=== PATIENT | male | born 1950 | race Caucasian/White ===

== ENCOUNTER → 2017-11-03 09:50 | Outpatient (REF) | payer MEDICARE, OTHER, SELFPAY ==
[2017-11-03 14:19] LABS: COMMENT (LAB VIEW ONLY) 206.71 mg/dL; Microalb ug/mg Crea 15.7 ug/mg Cr
== END ==
LOC: LBN 09:50
PROVIDERS: PCP Family Medicine; Visit Provider Family Medicine
DX: E11.69 Type 2 diabetes mellitus with other specified complication (principal)
CPT/HCPCS: 82043; 82570

== ENCOUNTER → 2017-11-12 09:47 | Outpatient (CLI) | payer MEDICARE, OTHER, SELFPAY ==
--- NOTE | 2017-11-12 10:35 | DI.REPORT_ITS ---
SYMPTOM/DIAGNOSIS: ENTEROPATHIC ARTHRITIS M07.60, SEVERE ULCERATIVE COLITIS TREATED WITH TOTAL COLECTOMY YEARS AGO BILATERAL HANDS: 11/12 Two views of the hands and wrists were obtained. There is a carpal fusion on the right with plate and screw fixation extending from the radius to the 3rd metacarpal. There are typical changes of degenerative arthritis of the IP joints with mild joint space narrowing and mild osteophyte formation in multiple sites. No erosive process or demineralization seen. CONCLUSION: Mild DJD predominantly involving the IP joints. S-I JOINTS: 11/12/17 Note is made of anastomotic sutures in the region of the rectosigmoid. The S-I joints are well maintained. No evidence of sacroiliitis or joint effusion. LEFT FOOT: 11/12 Three views were obtained. There is marked loss of the cartilaginous joint space of the first MTP joint with prominent hypertrophic changes of the adjacent bones. No other significant bony abnormality seen. CONCLUSION: Nonspecific changes of first MTP joint, likely degenerative. RIGHT FOOT : 11/12 Three views were obtained. There is moderate narrowing of the cartilaginous joint space of the first MTP joint with hypertrophic uri-articular change. The findings are consistent with degenerative arthritis.
[2017-11-12 11:06] LABS: Abs Immature Grans 0.02 k/cumm (0.0-0.09); Absolute Basophil Count 0.06 k/cumm (0.0-0.2); Absolute Lymphocyte Count 1.36 k/cumm (1.2-3.4); Absolute Monocyte Count 0.77 k/cumm (0.11-0.7); Basophils % 0.9; Eosinophils % 6.1; HCT 47.5 % (40.0-50.0); HGB 15.7 g/dL (13.5-17.5); Immature Grans % 0.3; Lymphocytes % 20.9; Mean Corp. HGB Concentration 33.1 g/dL (32.0-36.0); Mean Corpuscular Hemoglobin 28.7 pg (27.0-33.0); Mean Corpuscular Volume 86.8 fL (80-95); Mean Platelet Volume 10.5 fL (8.0-11.0); Monocytes % 11.8; Platelet Count 175 x1000/uL (130-400); RBC 5.47 m/cumm (4.50-6.00); RBC Distribution Width 13.5 % (11.8-14.1); White Blood Cell Count 6.51 k/cumm (4.4-10.8)
[2017-11-12 11:44] LABS: ESR 5 MM/HR (1-20)
[2017-11-12 11:58] LABS: ALT 20 U/L (12-78); AST 16 U/L (15-37); Albumin 3.5 g/dL (3.4-5.0); Alkaline Phosphatase 117 U/L (46-116); Anion Gap 3.1 mmol/L (3-11); BUN 17 mg/dL (7-18); Bilirubin, Total 0.5 mg/dL (0.2-1.0); C-Reactive Protein 3.77 mg/dL (0.0-0.3); CO2 33.9 mmol/L (21.0-32.0); CREATININE 1.31 mg/dL (0.70-1.30); Calcium 9.1 mg/dL (8.5-10.1); Chloride 102 mmol/L (98-107); Estimated GFR 54.58 (mL/min/1.73m2); Glucose 244 mg/dL (70-100); Potassium 4.8 mmol/L (3.5-5.1); Sodium 139 mmol/L (136-145); Total Protein 6.8 g/dL (6.4-8.2)
[2017-11-13 10:39] LABS: Cyclic Citrullinated Peptide <2.5 U/mL (<5.0)
== END ==
PROVIDERS: PCP Family Medicine; Visit Provider Internal Medicine Rheumatology
DX: M07.60 Enteropathic arthropathies, unspecified site (principal); Z79.899 Other long term (current) drug therapy; M19.041 Primary osteoarthritis, right hand; M19.042 Primary osteoarthritis, left hand; M19.071 Primary osteoarthritis, right ankle and foot; M19.072 Primary osteoarthritis, left ankle and foot; M53.3 Sacrococcygeal disorders, not elsewhere classified; K51.90 Ulcerative colitis, unspecified, without complications; Z90.49 Acquired absence of other specified parts of digestive tract
CPT/HCPCS: 72202; 73120; 73630 ×2; 36415; 80053; 85652; 86200; 85025; 86140

== ENCOUNTER 2019-08-10 09:30 | Outpatient (CLI) | payer MEDICARE, OTHER, SELFPAY ==
[2019-08-11 14:54] LABS: COVID-19 RT-PCR Result NEGATIVE (Negative)
== END 2019-08-10 09:50 ==
PROVIDERS: PCP Family Medicine; Visit Provider Family Medicine
DX: R05 Cough (principal)
CPT/HCPCS: U0003

== ENCOUNTER 2019-09-17 04:19 | Outpatient (CLI) | payer MEDICARE, OTHER, SELFPAY ==
[2019-09-17 17:04] LABS: ALT 33 U/L (16-63); AST 33 U/L (15-37); Albumin 3.5 g/dL (3.4-5.0); Alkaline Phosphatase 136 U/L (46-116); BUN 29 mg/dL (7-18); Bilirubin, Total 0.6 mg/dL (0.2-1.0); CREATININE 1.33 mg/dL (0.70-1.30); Calcium 8.8 mg/dL (8.5-10.1); Chloride 104 mmol/L (98-107); Creatine Kinase 237 U/L (39-308); Estimated GFR 53.31 (mL/min/1.73m2); Glucose 189 mg/dL (74-106); Potassium 4.3 mmol/L (3.5-5.1); Sodium 139 mmol/L (136-145); Total Protein 6.5 g/dL (6.4-8.2)
== END 2019-09-17 04:39 ==
PROVIDERS: PCP Family Medicine; Visit Provider Family Medicine
DX: R25.2 Cramp and spasm (principal)
CPT/HCPCS: 36415; 80053; 82550; 83735

== ENCOUNTER 2019-12-24 04:01 | Outpatient (CLI) | payer MEDICARE, OTHER, SELFPAY ==
--- NOTE | 2019-12-24 09:19 | DI.RAD_ITS ---
EXAM: XR CHEST 2V PA LATERAL CLINICAL HISTORY: [id number],NON PRODUCTIVE COUGH TECHNIQUE: 2D digital imaging was performed. COMPARISON: CR CHEST 2 VIEWS PA,LAT from 09/03/2011 CR ABD FLAT UPRIGHT PA CHEST from 07/23/2014 CR LEFT SHOULDER COMPLETE from 08/21/2015 FINDINGS: MEDIASTINUM: Normal. HEART: Normal. PULMONARY VASCULATURE: Normal. LUNGS: There is an infiltrate in the right middle lobe. PLEURAL SPACE: No pleural effusion or pneumothorax. BONE:Within normal limits for the patient's age. OTHER FINDINGS:Normal. IMPRESSION: Right middle lobe infiltrate. DATA REPOSITORY: RADIATION DOSE DELIVERED:
== END 2019-12-24 04:21 ==
PROVIDERS: PCP Family Medicine; Visit Provider Nurse Practitioner Adult Health
DX: R91.8 Other nonspecific abnormal finding of lung field (principal); R05 Cough
CPT/HCPCS: 71046

== ENCOUNTER 2020-01-03 00:46 | Outpatient (CLI) | payer OTHER, SELFPAY ==
--- NOTE | 2020-01-03 | DI.RAD_ITS ---
EXAM: RF BARIUM SWALLOW CLINICAL HISTORY: DYSPHAGIA,R13.19,[id number],GERD WITH NOW LIKELY ASPIRATION PNEUMONIA TECHNIQUE: COMPARISON: CR ABDOMEN FLAT PLATE from 11/24/2015 FINDINGS: Preliminary lateral view of the neck shows no significant soft tissue abnormality and normal laryngea l profile. Barium was ingested and showed normal esophageal motility and mucosal appearance. No tc dence of stricture. No evidence of obstruction. No focal mucosal abnormality seen. Visualized port ions of the stomach and duodenum are unremarkable. IMPRESSION: Negative barium swallow. RADIATION DOSE DELIVERED: Total DLP
[2020-01-03] MEDS: Barium Sulfate 60% W/V 355 ML BTL PO (11:15)
== END 2020-01-03 01:06 ==
PROVIDERS: PCP Family Medicine; Visit Provider Nurse Practitioner Adult Health
DX: R13.19 Other dysphagia (principal); K21.9 Gastro-esophageal reflux disease without esophagitis
CPT/HCPCS: 74221

== ENCOUNTER 2020-11-20 16:17 | Outpatient (REF) | payer OTHER, MEDICARE, SELFPAY ==
[2020-11-22 09:34] LABS: IgA 464 mg/dL (85-499); IgG 768 mg/dL (610-1,616); IgM 71 mg/dL (35-242)
[2020-11-22 10:20] LABS: IgE 6 IU/mL (<158)
== END 2020-11-20 16:18 | disposition home or self-care (01) ==
LOC: LBN 16:17
PROVIDERS: PCP Family Medicine; Visit Provider Student in an Organized Health Care Education/Training Program
DX: J47.9 Bronchiectasis, uncomplicated (principal)
CPT/HCPCS: 82784; 82785; 82787

== ENCOUNTER 2020-11-21 07:32 | Outpatient (REF) | payer OTHER, MEDICARE, SELFPAY | END 2020-11-21 07:33 | disposition home or self-care (01) | LOC: LBN 07:32 | PROVIDERS: PCP Family Medicine; Visit Provider Student in an Organized Health Care Education/Training Program | DX: J47.9 Bronchiectasis, uncomplicated (principal) | CPT/HCPCS: 87116; 87206 ==

== ENCOUNTER 2020-11-22 08:32 | Outpatient (REF) | payer MEDICARE, SELFPAY | END 2020-11-22 08:33 | disposition home or self-care (01) | LOC: LBN 08:32 | PROVIDERS: PCP Family Medicine; Visit Provider Student in an Organized Health Care Education/Training Program | DX: J47.9 Bronchiectasis, uncomplicated (principal) | CPT/HCPCS: 87077; 87116; 87206; 87070; 87186; 87205 ==

== ENCOUNTER 2020-11-23 14:44 | Outpatient (REF) | payer MEDICARE, SELFPAY | END 2020-11-23 14:45 | disposition home or self-care (01) | LOC: LBN 14:44 | PROVIDERS: PCP Family Medicine; Visit Provider Student in an Organized Health Care Education/Training Program | DX: J47.9 Bronchiectasis, uncomplicated (principal) | CPT/HCPCS: 87116; 87206 ==

== ENCOUNTER 2020-11-27 04:47 | Outpatient (CLI) | payer MEDICARE, OTHER, SELFPAY ==
[2020-11-27] MEDS: Albuterol HFA 18 GM 200 PUFF INH IH (13:49)
[2020-11-27] MEDS: Inhaler, Assist Device 1 EACH MC (13:49)
--- NOTE | 2020-11-27 14:35 | W.PFT ---
Date of service: 11/27/20 Time of Service: 13:06 Pulmonary Function Test Result Requesting Provider Donal Interpretation Spirometry: There is no airflow limitation. There is no significant bronchodilator effect. Lung Volumes: There is evidence of air trapping and hyperinflation. Diffusion Capacity: The diffusion is normal. Airway Pressure: Airways resistance is normal. Impression No airflow limitation however there is evidence of air trapping and hyperinflation. Clinical Correlation therefore is recommended.
== END 2020-11-27 04:48 | disposition home or self-care (01) ==
LOC: RT 04:48
PROVIDERS: PCP Family Medicine; Visit Provider Student in an Organized Health Care Education/Training Program
DX: J47.9 Bronchiectasis, uncomplicated (principal)
CPT/HCPCS: 94060; 94726; 94729

== ENCOUNTER → 2021-10-29 01:30 | Outpatient (CLI) | payer MEDICARE, OTHER, SELFPAY ==
--- NOTE | 2021-10-29 10:05 | DI.CT_ITS ---
Exam(s) CT ABDOMEN PELVIS WO EXAM: CT ABDOMEN PELVIS WO CLINICAL HISTORY: Hx of colon cancer and colectomy, RLQ pain.r10.30 TECHNIQUE: COMPARISON: CT RENAL COLIC WO CONTRAST from 08/14/2016 FINDINGS: CT examination of the abdomen and pelvis was performed with oral contrast only. The patient has reportedly had prior partial colectomy for colon carcinoma. There is a large quantity of fecal material in the rectum suggesting constipation.. Images obtained through the lung bases are unremarkable. The liver appears normal with no evidence of a focal mass. Spleen is unremarkable in appearance.. Gallbladder and bile ducts are unremarkable. Pancreas is unremarkable in appearance. Adrenals appear normal bilaterally. Kidneys appear normal except for previously noted presumed bilateral renal cysts, stable from July, with no evidence of renal mass, hydronephrosis, or nephrolithiasis. Unremarkable bladder. There is no evidence of abdominal or pelvic adenopathy. Abdominal aorta is of normal diameter and no abnormality is seen involving major visceral branches.. . No evidence diverticulitis or bowel obstruction. No significant abdominal wall hernia seen. Impression: Large quantity of fecal material in the rectum, findings are consistent with constipation. No other acute process.. RADIATION DOSE DELIVERED: 707.35mGy.cm Total DLP 707.35mGy.cm Total DLP !Error CTDIvol DATA REPOSITORY: All CT scans at this facility are submitted to the National Radiology Data Registry (NRDR) Dose Index Registry (DIR) with the [employer] (A[employer]). RADIATION OPTIMIZATION: All CT scans at this facility use at least one of these dose optimization te chniques: automated exposure control; mA and/or kV adjustment per patient size (includes targeted exa ms where dose is matched to clinical indication); or iterative reconstruction.
[2021-10-29] MEDS: Barium Sulfate 2% W/V-Berry Smoothie 450 ML BTL PO (10:06)
== END ==
PROVIDERS: PCP Family Medicine; Visit Provider Family Medicine
DX: R10.30 Lower abdominal pain, unspecified (principal)
CPT/HCPCS: 74176

== ENCOUNTER 2021-11-12 14:26 | Emergency (ER) | payer MEDICARE, OTHER, SELFPAY ==
[2021-11-12 14:31] VITALS: BP 125/82; PULSE 79; RESP 18; TEMP 36.5; O2SAT 95
--- NOTE | 2021-11-12 14:48 | ED.GENADUL_ITS ---
Discharge Plan Disposition Patient Disposition: HOME Condition: Stable Discharge Details Clinical Impression: Hernia, inguinal, right Primary Care Provider: Sanya Braden ED Provider: Ernie Bell Home Meds and New Rx's Prescriptions: Continued (DME) pen needle, diabetic [BD Ultra-Fine Orig Pen Needle] 29 gauge x 1/2 needle 1 ea Miscellaneous AC & HS Qty: 360 3RF Rx Instructions: 5mm/31G mini single use. For diabetes control (DME) lancets [OneTouch SureSoft Lancing Dev] misc 1 ea Miscellaneous QID Qty: 480 3RF Rx Instructions: E11.9 to maintain A1C less than 7.0 , test TID diphenoxylate-atropine [Lomotil] 2.5-0.025 mg tablet 1 tab PO BID insulin aspart U-100 [Novolog Flexpen U-100 Insulin] 100 unit/mL (3 mL) insulin pen 5 unit subcut TID Rx Instructions: ICR 1u:18grams of carb at the start of each meal. EO calcium carb,lactat-vitamin D3 200 mg calcium -250 unit tablet 2 tab PO DAILY Creon 24,000-76,000 -120,000 unit capsule,delayed release(DR/EC) 1 cap PO BID Rx Instructions: administer with meals and/or snacks Levemir FlexTouch U-100 Insuln 100 unit/mL (3 mL) insulin pen See Rx Instructions Sub-Q as directed Rx Instructions: Take 16 units with breakfast and 18 units with dinner (is actively titrating to a max of 50u daily). 12/30/19. NOE Zhang atorvastatin 10 mg tablet 10 mg PO DAILY Label Comments: pt states he takes i tab every other day magnesium 250 mg tablet 250 mg PO .QOD Levemir FlexTouch U-100 Insuln 100 unit/mL (3 mL) insulin pen 30 unit subcut QHS Label Comments: Pt is up to 32 units. levalbuterol HCl 0.63 mg/3 mL solution for nebulization 0.21 mg inhalation Q6H PRN (Reason: shortness of breath or wheezing) Qty: 90 12RF multivitamin [Daily Multi-Vitamin] 1 EACH tablet 1 ea PO .QOD glucosamine sulfate 2KCl 1,000 MG tablet 1,000 mg PO BID (DME) blood glucose control, normal [Fora Normal Control] 1 EACH solution 1 ea Miscellaneous PRN Qty: 1 Rx Instructions: to use each time a new Lot # of test strips are opened. Dx: E11.69 (DME) OneTouch Ultra Test strip 1 ea Miscellaneous QID Qty: 270 4RF Rx Instructions: to test blood sugar to keep HGB AIC less than 7, test TID, E11.65 omega-3 fatty acids-fish oil 300-1,000 mg capsule 1 cap PO QPM psyllium husk [Metamucil] 0.52 gram capsule 0.52 g PO BID Rx Instructions: as directed, for constipation following bowel surgery acetaminophen [Arthritis Pain Relief (acetam)] 650 MG tablet extended release 1,300 mg PO BID Discharge Instructions Instructions: Inguinal Hernia (ED) Additional Instructions: you should be contacted with an appointment for general surgery, if you don't hear from them you can call their office if you have severe worsening pain, persistent vomit or feel more ill return to the emergency department Referrals: Caroline Jalloh MD [ [facility] STAFF PHYSICIAN] - Medical Decision Making 71 yo male who has had prior abdominal surgeries including a colectomy comes in with intermittent right inguinal region pain for about 3 months. He feel the pain is becoming more frequent so came here for an evaluation. He did have a ct done as an outpatient at the start of this month which showed no acute findings and only showed constipation. He denies any testicle pain or urinary symptoms. HE has tenderness in the right inguinal region and has a small 2cm soft hernia that I was able to reduce. He has no other abdominal tenderness, no n/v, and his testicles are not tender or swollen and has intact cremasteric reflex. Given exam with hernia I reduced and is where his pain is do not feel further testing indicated especially with recent negative CT. Will refer to general surgery for an evaluation, return precautions given Differential Diagnosis Differential Diagnosis: inguinal hernia, muscle wall pain HPI General Mode of arrival: ambulatory . Date/Time Provider Initiated Documentation: 11/12/21 14:28 . Limitations to Documentation: no limitations . Information obtained by: patient . History of Present Illness 71 year old M presents to the emergency department with the chief complaint of right inguinal pain, described as moderate, Quality is described as aching, and it has been constant. No relieving factors improve symptom(s), No exacerbating factors reported . Patient did receive the following treatments prior to arrival, none Related Data Home Medications Medication Instructions Recorded Confirmed glucosamine sulfate 2KCl 1,000 mg 1,000 mg PO BID 06/16/12 10/18/21 tablet multivitamin (Daily Multi-Vitamin 1 ea PO .QOD 06/16/12 10/18/21 tablet) blood glucose control, normal ##1 12/29/15 10/18/21 (Fora Normal Control solution) acetaminophen 650 mg 1,300 mg PO BID 09/10/16 10/18/21 tablet,extended release (Arthritis Pain Relief (acetaminophen) ER) pen needle, diabetic 29 gauge x ##360 01/19/18 10/18/2104/01 (BD Ultra-Fine Original Pen Needle) lancets (Xochitl (So-Shee) Gold minesuch SureSoft Lancing #480 ea 09/04/18 10/18/21 Devices) blood sugar diagnostic (Xochitl (So-Shee) Gold minesuch #270 strips 09/17/18 10/18/21 Ultra Test strips) calcium carb and lactate 200 2 tab PO DAILY 12/30/19 10/18/21 mg-vitamin D3 6.25 mcg (250 unit) tablet diphenoxylate-atropine 2.5 1 tab PO BID 12/30/19 10/18/21 mg-0.025 mg tablet (Lomotil) insulin aspart U-100 100 unit/mL 5 unit subcut TID 12/30/19 10/18/21 (3 mL) subcutaneous pen (Novolog Flexpen U-100 Insulin aspart) omega-3 fatty acids-fish oil 300 1 cap PO QPM 12/30/19 10/18/21 mg-1,000 mg capsule psyllium husk 0.52 gram capsule 0.52 g PO BID 12/30/19 10/18/21 (Metamucil) [id number] 1 cap PO BID 11/20/20 10/18/21 24,000-76,000-120,000 unit capsule,delayed rel (Creon) atorvastatin 10 mg tablet 10 mg PO DAILY 12/27/20 10/18/21 insulin detemir U-100 100 unit/mL See Rx Instructions subcut as 12/27/20 10/18/21 (3 mL) subcutaneous pen (Levemir directed FlexTouch U-100 Insulin) magnesium 250 mg tablet 250 mg PO .QOD 08/08/21 10/18/21 insulin detemir U-100 100 unit/mL 30 unit subcut QHS 10/18/21 10/18/21 (3 mL) subcutaneous pen (Levemir FlexTouch U-100 Insulin) levalbuterol HCl 0.63 mg/3 mL 0.21 mg inhalation Q6H PRN 10/18/21 10/18/21 solution for nebulization shortness of breath or wheezing #90 mL Previous Rx's Medication Instructions Recorded pen needle, diabetic 29 gauge x ##360 01/19/1804/01 (BD Ultra-Fine Original Pen Needle) lancets (Xochitl (So-Shee) Gold minesuch SureSoft Lancing #480 ea 09/04/18 Devices) blood sugar diagnostic (Konnecti.comTouch #270 strips 09/17/18 Ultra Test strips) levalbuterol HCl 0.63 mg/3 mL 0.21 mg inhalation Q6H PRN 10/18/21 solution for nebulization shortness of breath or wheezing #90 mL Allergies Allergy/AdvReac Type Severity Reaction Status Date / Time latex Allergy Unknown RASH Verified 10/18/21 08:34 azathioprine AdvReac Severe Sepsis Verified 10/18/21 08:34 NEOPRENE Allergy Unknown RASH/REDNES Uncoded 10/18/21 08:34 S General Stated Complaint: Male Reproductive Problem ANNIE: 3 Review of Systems All systems reviewed & are unremarkable except as noted in HPI and below Constitutional Constitutional: Denies chills, Denies fever(s) and Denies weakness Eyes Eyes: Denies loss of vision ENT Ears, Nose, Mouth, and Throat: Denies change in voice Cardiovascular Cardiovascular: Denies chest pain and Denies dyspnea Respiratory Respiratory: Denies cough and Denies dyspnea Gastrointestinal Gastrointestinal: Denies nausea and Denies vomiting Genitourinary Genitourinary: Denies dysuria Musculoskeletal Musculoskeletal: Denies joint swelling Neurologic Neurologic: Denies loss of vision and Denies weakness PFSH All Active Problems (Updated 11/12/21 @ 14:48 by Ernie Bell MD) Hernia, inguinal, right (Acute) Emphysema lung (Acute) Bronchiectasis (Acute) Nocturnal leg cramps (Acute) Cough (Acute 04/05/13) Diabetes mellitus (Acute 01/30/04) Dysphagia (Acute 06/15/13) Globus sensation (Acute 04/05/13) History of total colectomy (Acute 07/29/14) Impacted cerumen (Acute 04/05/13) Tinnitus (Acute 04/05/13) Shoulder pain (Acute 04/15/14) Enteropathic arthritis (Chronic) 01/02/18 Dr Gutierres, [facility] Rhe[facility] Uncontrolled type 2 diabetes mellitus with hyperglycemia, with long-term current use of insulin (Chronic 08/27/16) goal A1c <7.6 Status post colectomy (Chronic 05/01/88) Ulcerative Colitis; s/p colectomy 1992; yearly check -->Dr Fermin [facility] [place] for 2014; pouchoscopy q 2yr Sleep disturbance, unspecified (Chronic 06/20/11) Postprocedural urethral stricture, male, 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) Pain, joint, multiple sites (Chronic 06/20/11) Personal history of other diseases of the digestive system (Chronic 05/01/88) Ulcerative Colitis; s/p colectomy 1992; yearly check -->Dr Fermin [facility] [place] for 2 015; pouchoscopy q 2yr 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) legs jump at night, kicks ; continues; also h/o conversion movement disorder (Thadani) Lower urinary tract symptoms (LUTS) (Chronic 09/27/15) Cystoscopy 09/2015: T[facility]IBIO Hearing loss (Chronic 06/20/11) Headache (Chronic 06/20/11) Gastroesophageal reflux disease without esophagitis (Chronic 06/20/11) EGD with Dilatation 07/2013 Pierre (pt declines to see him again) 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) h/o Mitral prolapse, not heard 07/2013; ?S3 Dr Jay 08/11; actually PAC I think Esophageal reflux (Chronic 06/20/11) EGD with Dilatation 07/2013 Pierre (pt declines to see him again) DM manif NEC type II (Chronic 01/30/04) s/p pancreatectomy 10/01; 01/2004 NORMAL C-PEPTIDE; Goal A1c <7.6 Chronic midline low back pain without sciatica (Chronic 10/28/16) recurrent, pinching, djd with vacuum disc on renal CT scan 07/2016 Cervical arthritis (Chronic 06/08/13) degenerative changes on Ba Swallow 2006; paresthesias along spine 05/2013 Surgical History (Updated 08/31/18 @ 15:30 by Vanita Lynch) EGD - IV Sedation (11/04/16) Pouch endoscopy (11/25/14) Dr. Matthew Fermin Colorectal surgery [facility] [place] Transurethral prostatectomy (11/23/15) Family History (Updated 11/20/20 @ 10:45 by Sue Marquez) Mother , Breast Cancer at age 73. Cancer Sister Cancer breast Brother Cancer pancreatic Social History (Updated 12/07/18 @ 09:03 by Vanita Fowler LPN) Smoking/Tobacco Use Status: Never Smoking risk assessment performed?: Yes Alcohol Intake: never Drug use: Never Substance use type: does not use Adopted: No Caregiver/Support person: No Foster care: No Household members: spouse Housing: house Number of Children: 0 current occupation: worked at [employer] What is your relationship status?: Panel score (0-1 are the most socially isolated patients): 1 What type of physical activity do you participate in: walking Duration: 15-30 minutes/day Frequency: 3-4 times per week Seatbelt use: always Drive intox or ride w/intox truck driver supervisor: No Water heater temp set <120 deg: Yes Working smoke detector in home: Yes Fire extinguisher in home: Yes Carbon monox detector in home: Yes Do you feel safe at home: Yes Do you feel safe in your relationship?: Yes Exam Const General: no acute distress Orientation: alert [facility] Head: normal to inspection Ears: external ears normal General nose exam: external nose normal Mouth: moist mucous membranes Eyes General: appearance normal, both eyes and all related structures Neck Neck: normal visual inspection Resp Effort & Inspection: normal respiratory effort and able to speak in complete sentences Cardio Rate: regular rate GI Palpation: soft and nontender Skin General skin exam: no rashes or lesions noted Neuro General: patient alert and patient oriented x3 Extrem General: normal to inspection Psych Mental Status: mental status grossly normal Course Vital Signs Vital signs: Vital Signs Temperature 36.5 C 11/12/21 14:31 Pulse 79 11/12/21 14:31 Respiratory Rate 18 11/12/21 14:31 Blood Pressure 125/82 11/12/21 14:31 Pulse Oximetry 95 11/12/21 14:31 Temperature 36.5 C 11/12/21 14:31 Temperature Source Temporal Artery Scan 11/12/21 14:31 Pulse 79 11/12/21 14:31 Respiratory Rate 18 11/12/21 14:31 Respiratory Effort 11/12/21 14:42 Blood Pressure 125/82 11/12/21 14:31 Blood Pressure Position Sitting 11/12/21 14:31 Pulse Oximetry 95 11/12/21 14:31 Oxygen Delivery Method Room Air 11/12/21 14:31 Oxygen Flow Rate 0 11/12/21 14:31
--- NOTE | 2021-11-12 14:51 | NUR.NOTE ---
Nursing Note: Referral faxed to [facility] for inguinal hernia, 1 week.
== END 2021-11-12 15:03 | disposition home or self-care (01) ==
LOC: ER 14:50
PROVIDERS: Emergency Provider Emergency Medicine; PCP Family Medicine
DX: K40.90 Unilateral inguinal hernia, without obstruction or gangrene, not specified as recurrent (principal); Z90.49 Acquired absence of other specified parts of digestive tract
CPT/HCPCS: 99282; 99284

== ENCOUNTER → 2021-11-19 12:54 | Outpatient (BNVA) | payer MEDICARE, OTHER, SELFPAY | PROVIDERS: PCP Family Medicine; Referring Provider Family Medicine; Visit Provider Surgery | DX: K46.9 Unspecified abdominal hernia without obstruction or gangrene (principal) | CPT/HCPCS: 99214 ==

== ENCOUNTER 2021-11-21 02:19 | Outpatient (CLI) | payer MEDICARE, OTHER, SELFPAY ==
[2021-11-21 07:41] LABS: Source Nasal/Nares
[2021-11-21 09:41] LABS: COVID-19 PCR Negative (Negative)
== END 2021-11-21 02:20 | disposition home or self-care (01) ==
LOC: LBO 02:19
PROVIDERS: PCP Family Medicine; Visit Provider Surgery
DX: Z20.822 Contact with and (suspected) exposure to COVID-19 (principal)
CPT/HCPCS: 87635

== ENCOUNTER 2021-11-23 07:11 | Day surgery (SDC) | payer MEDICARE, OTHER, SELFPAY ==
[2021-11-23] VITALS (11 sets, daily range): BP systolic 84–122; BP diastolic 53–80; PULSE 49–67; RESP 14–20; TEMP 36–36.4; O2SAT 96–99; BMI 23.8
--- NOTE | 2021-11-23 06:20 | W.ANESPRE ---
General Info Date of Service Date Performed: 11/23/21 Height: 5 ft 6 in Weight: 67.132 kg Body Mass Index (BMI): 23.8 Surgical Procedure: Operation Date: 11/23/21 08:40 Proposed Procedure Side Surgeon p Herniorrhaphy Inguinal w/Mesh Right Kin Gao MD Meds Allergies and Home Medications Allergies Allergy/AdvReac Type Severity Reaction Status Date / Time latex Allergy Unknown RASH Verified 11/22/21 12:38 azathioprine AdvReac Severe Sepsis Verified 11/22/21 12:38 NEOPRENE Allergy Unknown RASH/REDNES Uncoded 11/22/21 12:38 S Home Medication Medication Instructions Recorded glucosamine sulfate 2KCl 1,000 mg 1,000 mg PO BID 06/16/12 tablet multivitamin (Daily Multi-Vitamin 1 ea PO .QOD 06/16/12 tablet) blood glucose control, normal ##1 12/29/15 (Fora Normal Control solution) acetaminophen 650 mg 1,300 mg PO BID 09/10/16 tablet,extended release (Arthritis Pain Relief (acetaminophen) ER) pen needle, diabetic 29 gauge x ##360 01/19/18 1/2 (BD Ultra-Fine Original Pen Needle) lancets (DailyObjects.comTouch SureSoft Lancing #480 ea 09/04/18 Devices) blood sugar diagnostic (OneTouch #270 strips 09/17/18 Ultra Test strips) calcium carb and lactate 200 2 tab PO DAILY 12/30/19 mg-vitamin D3 6.25 mcg (250 unit) tablet diphenoxylate-atropine 2.5 1 tab PO TID 12/30/19 mg-0.025 mg tablet (Lomotil) insulin aspart U-100 100 unit/mL 15 - 30 unit subcut TID 12/30/19 (3 mL) subcutaneous pen (Novolog Flexpen U-100 Insulin aspart) omega-3 fatty acids-fish oil 300 1 cap PO QPM 12/30/19 mg-1,000 mg capsule psyllium husk 0.52 gram capsule 0.52 g PO BID 12/30/19 (Metamucil) rkamjx-npehbeau-tewymqk 1 cap PO BID 11/20/20 24,000-76,000-120,000 unit capsule,delayed rel (Creon) atorvastatin 10 mg tablet 10 mg PO DAILY 12/27/20 magnesium 250 mg tablet 250 mg PO .QOD 08/08/21 insulin detemir U-100 100 unit/mL 30 unit subcut QHS 10/18/21 (3 mL) subcutaneous pen (Levemir FlexTouch U-100 Insulin) levalbuterol HCl 0.63 mg/3 mL 0.21 mg inhalation Q6H PRN 10/18/21 solution for nebulization shortness of breath or wheezing #90 mL celecoxib 200 mg capsule (Celebrex) 200 mg PO DAILY 11/19/21 omeprazole 40 mg capsule,delayed 40 mg PO DAILY 11/19/21 release ferrous sulfate 325 mg (65 mg 325 mg PO Q OTHER DAY 11/23/21 iron) tablet oxycodone 5 mg tablet 5 mg PO Q8H PRN pain #9 tabs 11/23/21 Current Visit Medications: Current Medications Generic Name Dose Route Start Last Admin Trade Name Freq PRN Reason Stop Dose Admin Acetaminophen 1,000 mg 11/23/21 06:00 Acetaminophen 500 Mg Tab PO 12/22/21 23:59 PREOP SHAWNA Gabapentin 300 mg 11/23/21 06:00 Gabapentin 300 Mg Cap PO 12/22/21 23:59 PREOP SHAWNA Heparin Sodium (Porcine) 5,000 units 11/23/21 06:00 Heparin 5,000 Units/Ml Vial SC 11/23/21 18:00 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 SALES MANAGER [facility] Ringer's Solution 1,000 mls @ 80 mls/hr 11/23/21 06:00 IV 12/22/21 23:59 INFUSION SHAWNA Cefazolin Sodium/Dextrose 2 gm in 50 mls @ 100 mls/hr 11/23/21 06:00 Ancef Duplex IVPB 12/22/21 23:59 PREOP [facility] IV Miscellaneous Supplies 1 each 11/23/21 06:00 Iv Access IV 12/22/21 23:59 DIRECTED SHAWNA Sodium Chloride 0 ml 11/23/21 06:00 Normal Saline Flush 10 Ml Syr IV 12/22/21 23:59 PRN PRN Sodium Chloride 0 ml 11/23/21 06:00 Normal Saline 10 Ml Vial IJ 12/22/21 23:59 DIRECTED PRN Sterile Water 0 ml 11/23/21 06:00 Water,Injection,Sterile 10 Ml Vial IJ 12/22/21 23:59 DIRECTED PRN PFSH Active Problems Active Problems: Problem Status Onset Code Bladder outlet obstruction N32.0 Postoperative ileus K91.3 Bladder stone 09/05/16 N21.0 Cervical arthritis 06/08/13 M47.812 Chronic midline low back pain without sciatica 10/28/16 M54.5, G89.29 Cubital tunnel syndrome of both upper extremities 11/29/14 G56.23 DM manif NEC type II 01/30/04 E11.69 Esophageal reflux 06/20/11 K21.9 Extrasystolic arrhythmia 09/28/13 I49.49 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49 Uncontrolled type 2 diabetes mellitus with hyperglycemia, with long-term current use of insulin 08/27/16 E11.65, Z79.4 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 states he 10/17/03 had part of his pancreas removed Pouch endoscopy (11/25/14) Dr. Matthew Fermin Colorectal surgery [facility] Transurethral prostatectomy (11/23/15) Tobacco Smoking/Tobacco Use Status: Never Passive smoking exposure: No Alcohol Alcohol Intake: former Substance Use Substance use: Never Substance use type: does not use and former substance user Vital Signs and Lab Results Vital Signs Most Recent Vital Signs in EMR: Temp Pulse Resp BP Pulse Ox 36.3 C L 60 16 116/80 99 11/23/21 07:35 11/23/21 07:35 11/23/21 07:35 11/23/21 07:35 11/23/21 07:35 Lab Results Blood Type / Crossmatch: No Data to Display Complete Blood Count: No Data to Display Complete Metabolic Panel: No Data to Display Liver Function Panel: No Data to Display Coagulation Panel: No Data to Display Cardiac Panel: No Data to Display Arterial Blood Gas: No Data to Display Venous Blood Gas: No Data to Display Pancreas Panel: No Data to Display Thyroid Panel: No Data to Display Infectious Disease: Coronavirus (COVID-19)(PCR) Negative (Negative) 11/21/21 07:30 Coronavirus 2019 Source Nasal/Nares 11/21/21 07:30 Blood Cultures: No Data to Display Toxicology Panel: No Data to Display Imaging and Studies Imaging and Studies Study information below may be from another EMR and interpreted by another provider. Please see original notes in EMR for more complete details. Pulmonary Function Summary: 2020: air trapping and hyperinflation. Anesthesia Assessment and Plan Anesthesia History Personal History: No History of Anesthesia Complications Family History: No Family History of Anesthesia Complications Exercise Tolerance Exercise Tolerance: Metabolic Equivalents>4 Cardiac & Pulmonary Exam Cardiac Exam: Normal S1/S2 Heart Sounds Pulmonary Exam: Clear Bilateral Breath Sounds Implantable Cardiac Device Does patient have a Pacemaker or an ICD?: No Airway Exam Known Difficult Airway: No Mallampati Class: 2 Mouth Opening: Normal (> 3cm) Thyromental Distance: Greater than 3 cm Neck Range of Motion: Limited ROM Neck Circumference: Normal Teeth Condition: Normal Dentition ASA Classification ASA Score: ASA 3 Emergency Case?: No NPO Status NPO Status: NPO Clears >2 hours, Solids >8 hours Anesthesia Plan Resuscitation Status: Full Code Anesthesia Technique: General Anesthesia Airway Planned: LMA Pain Management: Surgeon and patient request nerve block Monitors Used: Standard Monitors Preoperative Comments:: 71 yo male for hernia repair. Sig PMHx: PE/DVT, GERD, DM2, bronchiectasis. Previous Anes: LMA 4 x 2
[2021-11-23] MEDS: Lactated Ringers 1,000 ML 80 ML IV (08:02)
--- NOTE | 2021-11-23 08:02 | NUR.NOTE ---
Addendum entered by Elvin Al 11/23/21 08:05: Blood sugar 92. Original Note: C/O feeling light headed and nauseated after IV incertion. HR 55, BP 89/66. Fluid bolus initiated. Feet elevated in recliner. Cool wash cloth to forehead. Emesis bag in reach. Skin remains warm and dry with normal color.Nursing Note:
--- NOTE | 2021-11-23 08:16 | NUR.NOTE ---
Symptom resolved. BP 100/66. HR 53. 400 ml IV fluid infused. Rate decreased to KVO. 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 Nursing Note:
[2021-11-23] MEDS: Celecoxib 200 MG CAP PO (08:18)
[2021-11-23] MEDS: Acetaminophen 500 MG TAB 1000 MG PO (08:18)
[2021-11-23] MEDS: Gabapentin 300 MG CAP PO (08:19)
--- NOTE | 2021-11-23 08:25 | W.PM.DSUDISC ---
Discharge Plan Disposition Patient Disposition: HOME Condition: Good Discharge Details Reason For Visit: right inguinal hernia repair Attending Provider: Kin Gao Primary Care Provider: Sanya Braden Home Meds and New Rx's Prescriptions: New oxycodone 5 mg tablet 5 mg PO Q8H PRN (Reason: pain) Qty: 9 0RF Rx Instructions: take one tablet by mouth as needed for severe pain. This medication is highly addictive and should be used with great caution. Continued omeprazole 40 mg capsule,delayed release(DR/EC) 40 mg PO DAILY celecoxib [Celebrex] 200 mg capsule 200 mg PO DAILY (DME) pen needle, diabetic [BD Ultra-Fine Orig Pen Needle] 29 gauge x 1/2 needle 1 ea Miscellaneous AC & HS Qty: 360 3RF Rx Instructions: 5mm/31G mini single use. For diabetes control (DME) lancets [OneTouch SureSoft Lancing Dev] misc 1 ea Miscellaneous QID Qty: 480 3RF Rx Instructions: E11.9 to maintain A1C less than 7.0 , test TID diphenoxylate-atropine [Lomotil] 2.5-0.025 mg tablet 1 tab PO TID insulin aspart U-100 [Novolog Flexpen U-100 Insulin] 100 unit/mL (3 mL) insulin pen 15 - 30 unit subcut TID Rx Instructions: ICR 1u:18grams of carb at the start of each meal. EO calcium carb,lactat-vitamin D3 200 mg calcium -250 unit tablet 2 tab PO DAILY Creon 24,000-76,000 -120,000 unit capsule,delayed release(DR/EC) 1 cap PO BID Rx Instructions: administer with meals and/or snacks atorvastatin 10 mg tablet 10 mg PO DAILY Label Comments: pt states he takes i tab every other day magnesium 250 mg tablet 250 mg PO .QOD Levemir FlexTouch U-100 Insuln 100 unit/mL (3 mL) insulin pen 30 unit subcut QHS Label Comments: Pt is up to 32 units. levalbuterol HCl 0.63 mg/3 mL solution for nebulization 0.21 mg inhalation Q6H PRN (Reason: shortness of breath or wheezing) Qty: 90 12RF multivitamin [Daily Multi-Vitamin] 1 EACH tablet 1 ea PO .QOD glucosamine sulfate 2KCl 1,000 MG tablet 1,000 mg PO BID (DME) blood glucose control, normal [Fora Normal Control] 1 EACH solution 1 ea Miscellaneous PRN Qty: 1 Rx Instructions: to use each time a new Lot # of test strips are opened. Dx: E11.69 (DME) OneTouch Ultra Test strip 1 ea Miscellaneous QID Qty: 270 4RF Rx Instructions: to test blood sugar to keep HGB AIC less than 7, test TID, E11.65 omega-3 fatty acids-fish oil 300-1,000 mg capsule 1 cap PO QPM psyllium husk [Metamucil] 0.52 gram capsule 0.52 g PO BID Rx Instructions: as directed, for constipation following bowel surgery acetaminophen [Arthritis Pain Relief (acetam)] 650 MG tablet extended release 1,300 mg PO BID ferrous sulfate 325 mg (65 mg iron) Tablet 325 mg PO Q OTHER DAY Discharge Instructions Instructions: Inguinal Hernia Repair (DC) Additional Instructions: 1. Resume all of your medications. 2. Okay to use tylenol and ibuprofen over the counter as needed. 3. Use oxycodone as needed for pain. 4. Leave bandage in place for 48 hours, then remove. 5. Shower with warm soapy water. Pat dry. Use a bandaid if needed to protect your clothing. 6. No soaking or tub baths until I see you in the office. 7. No heavy lifting until I see you in the office. 8.Call the office (or go directly to the emergency room after hours) if you notice any of the following: Develop chills (warm to touch), or if you have a thermometer and your temperature is above 101 Difficulty breathing or difficultly swallowing Persistent vomiting Any bleeding ? exceeding one tablespoon 6. Call your physician if the site where your intravenous was started becomes red, swollen, painful, and warm to touch. Referrals: Kin Gao MD [ [facility] STAFF PHYSICIAN] - Activity:: no lifting more than 10 lbs Remove Dressings/Wound Care:: 48 hours Shower/Bathe:: 48 hours Diet:: As Tolerated Discharge Orders Discharge Orders: Discharge Order (Routine); Ordered 11/23/21 Ordered By: Kin Gao Discharge Data Discharge Comment: follow up with me 7-10 days DS: Diagnosis Discharge Diagnosis (1) Hernia, inguinal, right: Status: Acute Asessment and Plan: right sided open inguinal herniorraphy with mesh patch and plug
[2021-11-23] MEDS: Heparin 5,000 UNITS/ML VIAL 5000 UNITS SC (08:27)
--- NOTE | 2021-11-23 08:31 | ROE_ITS ---
Date of service: 11/23/21 Operative Note Operative Note DATE OF PROCEDURE: 11/23/21 PRE-OP DIAGNOSIS: right inguinal hernia POST-OP DIAGNOSIS: same PROCEDURE: Open right-sided inguinal herniorrhaphy with plug and patch SURGEON: Kin Gao CIVIL ENGINEERING PROFESSOR: Pam Costello ANESTHESIA TYPE: Local By Surgeon, General LMA/ETT and Primary Nerve Block Refer to Anesthesia Record ESTIMATED BLOOD LOSS: 50 COMPLICATIONS: None Patient was transported to: PACU Patient's condition: stable Indications: Calixto is a 71-year-old male with a tender intermittent right inguinal bulge consistent with a right inguinal hernia. Procedure Description: I began by confirming the correct site with the patient. Next, the anesthesia team performed a right ankle nerve block.. Surgical site was then prepped and draped in the usual fashion. I began by making an oblique incision over the inguinal region. I dissected down through the skin to the deep fascia. Next, I incised the fascia along the length of the inguinal canal to the external ring. I then carefully identified the ilioinguinal nerve and dissected it from the operative site. Once this was complete, I bluntly dissected the shelving edge of the inguinal ligament down towards the pubic tubercle. Here, I encircled all cord structures with a Melanie drain. Next, I began dissecting the specific cord structures. Great care was taken to spare the vas deferens and the blood supply to the testicle. Next, I isolated the hernia sac from the other inguinal structures. I reduced it back to its normal anatomic position. This appeared to be an indirect inguinal hernia. I then used a large mesh plug to obliterate the defect at the internal ring. I fixed in place with interrupted Prolene stitches. Next, I buttressed the posterior floor of the inguinal canal with a large mesh patch. I started by fixing it to the pubic tubercle. Next, I used sutures to affix it to the shelving edge of the inguinal ligament and the conjoined tendon. Laterally I tacked it to the transversalis fascia and reconstructed an internal ring without any strain on the cord structures. Once this was complete, I irrigated the surgical field. It appeared hemostatic. I then closed the anterior portion of the fascia to reconstruct the front wall of the inguinal canal. I did this with interrupted Vicryl stitches. Once again, I irrigated the surgical field and inspected for hemostasis. Finally, I approximated the superficial fascia and the deep layers of the skin with absorbable suture. Skin was closed with running subcuticular stitch. Bandages were applied, the patient was awakened and transferred to the recovery unit.
[2021-11-23] MEDS: ceFAZolin 2 GM/50 ML BAG IVPB (09:00)
--- NOTE | 2021-11-23 09:17 | W.ANESNERVE ---
Nerve Block Single Injection Procedure Date and Time Date Performed: 11/23/21 Procedure Start: 09:05 Location Where Procedure Performed Procedure Location: Operating Room Procedure Stop: 09:10 Reason Performed: Postoperative Analgesia Requesting Provider: Kin Goa Timeout Performed Timeout Performed: Yes Monitoring Used ECG, Blood Pressure, SpO2 and ETCO2 Sterility Sterility: Hand Hygiene, Surgical Cap, Surgical Mask, Sterile Gloves and Chlorhexidine Sedation Given During Procedure Sedation Given (Indicate Dose Given): No Sedation given Patient Mental Status Patient Mental Status: Performed under general anesthesia Nerve Block 1st Nerve Block: Laterality: Right Block Type: TAP Unilateral Needle / Catheter Used: 100mm SonoPlex II Local Anesthetic Bolus (Indicate Dose Given): Bupivacaine 0.375% Dose:: 30 mL Additives (Indicate Dose Given): Precedex Dose:: 40 mcg Ultrasound: Sterile probe cover and gel used Ultrasound Image Saved?: Yes Nerve Stimulator: Not Used Paresthesia: None Procedure Tolerated: No Complications Procedure Outcome: Successful Performed By: Dylan Torres
[2021-11-23] MEDS: Bupivacaine 0.25% Pres-Free W/EPI 30 ML VIAL (09:55)
--- NOTE | 2021-11-23 14:56 | W.ANESPOSTOP ---
Postoperative Evaluation Date, Time and Location Date Performed: 11/23/21 Time Performed: 12:24 Patient Location: Day Surgery Unit Vital Signs Most Recent Imported Vital Signs: Most Recent Vital Signs Temp Pulse Resp BP Pulse Ox 36.3 C L 55 L 16 122/79 98 11/23/21 12:24 11/23/21 12:24 11/23/21 12:24 11/23/21 12:24 11/23/21 12:24 Pain Score Most Recent Pain Score: Most Recent Pain Score Pain Level 0 11/23/21 12:24 Assessment Mental Status: Awake (Alert & Oriented to Patient Baseline) Airway and Respiratory Function: Patent airway with normal (patient baseline) respiratory exam Cardiovascular Function: Hemodynamically Stable Hydration Status: Adequately Hydrated Nausea & Vomiting: No Nausea or Vomiting Pain: Pain is tolerable per patient Peripheral Nerve Block: Regional nerve block not resolved at time of post operative discharge
== END 2021-11-23 13:35 | disposition home or self-care (01) ==
PROVIDERS: PCP Family Medicine; Visit Provider Surgery
PROC: (CPT 49505; principal; 2021-11-23 08:30)
DX: K40.90 Unilateral inguinal hernia, without obstruction or gangrene, not specified as recurrent (principal); E11.9 Type 2 diabetes mellitus without complications; K21.9 Gastro-esophageal reflux disease without esophagitis; J43.9 Emphysema, unspecified
CPT/HCPCS: 49505; 76942; C1781; J0690; J1100; J1644; J1885; J2405

== ENCOUNTER → 2021-12-05 13:56 | Outpatient (BNVA) | payer MEDICARE, OTHER, SELFPAY | PROVIDERS: PCP Family Medicine; Referring Provider Family Medicine; Visit Provider Surgery | DX: Z48.817 Encounter for surgical aftercare following surgery on the skin and subcutaneous tissue (principal) ==

== ENCOUNTER → 2023-08-12 14:52 | Outpatient (BNVA) | payer MEDICARE, OTHER, SELFPAY | PROVIDERS: PCP Family Medicine; Referring Provider Family Medicine; Visit Provider Student in an Organized Health Care Education/Training Program | DX: J47.9 Bronchiectasis, uncomplicated (principal); J43.2 Centrilobular emphysema | CPT/HCPCS: 99214 ==

== ENCOUNTER → 2023-12-10 12:44 | Outpatient (BNVA) | payer MEDICARE, OTHER, SELFPAY | PROVIDERS: PCP Family Medicine; Referring Provider Family Medicine; Visit Provider Physician Assistant Surgical | DX: J43.2 Centrilobular emphysema (principal); J47.9 Bronchiectasis, uncomplicated | CPT/HCPCS: 99214 ==

== ENCOUNTER 2024-08-17 05:21 | Inpatient (IN) | payer OTHER, SELFPAY ==
[2024-08-17] VITALS (67 sets, daily range): BP systolic 111–167; BP diastolic 62–91; PULSE 55–87; RESP 11–25; TEMP 35.7–37.2; O2SAT 94–100
--- NOTE | 2024-08-17 05:30 | DI.CT_ITS ---
Exam(s) CT ABDOMEN PELVIS W EXAM: CT ABDOMEN PELVIS W CLINICAL HISTORY: vomiting, abd pain, old colectomy from cancer. TECHNIQUE: Imaging Protocol: Axial computed tomography images with coronal and sagittal reformatted images were created and reviewed CONTRAST MATERIAL: Intravenous: Omnipaque 350 Contrast volume:100 ml Oral: yes no COMPARISON: CT CT ABDOMEN PELVIS WO from 10/29/2021 FINDINGS: ABDOMEN and PELVIS: Lung Bases: No acute findings. Liver: Normal density. No suspicious mass. Gallbladder and biliary tract: No radiodense calculus. No wall thickening or pericholecystic fluid. No biliary dilation. Pancreas: Pancreatectomy. No evidence of mass. Spleen: Normal. Kidneys: Normal size, contour and axis. No radiodense stones. No obstructive uropathy. Renal cysts. No suspicious masses seen. Adrenal glands: No masses seen. Vasculature: Abdominal aorta non-dilated. Soft tissues: Unremarkable. Bladder: No gross wall thickening. No calculi.No focal mass. Bowel: Prior colectomy. The stomach is distended with food and fluid. Proximal small bowel the smal l bowel is distended to the level of the lower pelvis. There is some feculent material in the distal loops. There are some decompressed loops distally. Findings are consistent with obstruction. cavity: No ascites. No focal collection. Mesenteric haziness. No evidence of perforation or absces s. Bones: Unremarkable for age. Reproductive organs: Enlarged prostate, impressing on the base of the bladder, similar to prior. Are a superior nodularity. Lymph nodes: No pathologically enlarged lymph nodes. IMPRESSION:: Small-bowel obstruction with transition point centrally in the pelvis. Status post colectomy and pancreatectomy. RADIATION DOSE DELIVERED: 298.35mGy.cm Total DLP DATA REPOSITORY: All CT scans at this facility are submitted to the National Radiology Data Registry (NRDR) Dose Index Registry (DIR) with the [employer] (ACR). RADIATION OPTIMIZATION: All CT scans at this facility use at least one of these dose optimization te chniques: automated exposure control; mA and/or kV adjustment per patient size (includes targeted exa ms where dose is matched to clinical indication); or iterative reconstruction.
[2024-08-17] MEDS: ACETAMINOPHEN 1,000 MG/100 ML BTL 400 MG IVPB (05:35)
--- NOTE | 2024-08-17 05:35 | ED.GENADUL_ITS ---
Discharge Plan Discharge Details Chief Complaint: Abd Prob Clinical Impression: Small bowel obstruction Primary Care Provider: Sanya Braden ED Provider: Jaxon Feng Home Meds and New Rx's Prescriptions: No Action omeprazole 40 mg capsule,delayed release(DR/EC) 20 mg PO DAILY celecoxib [Celebrex] 200 mg capsule 200 mg PO DAILY sulfamethoxazole-trimethoprim [Bactrim DS] 800-160 mg tablet 1 tab PO BID Qty: 14 0RF levalbuterol HCl 0.63 mg/3 mL solution for nebulization 0.21 mg inhalation Q6H PRN (Reason: shortness of breath or wheezing) Qty: 180 12RF (DME) pen needle, diabetic [BD Ultra-Fine Orig Pen Needle] 29 gauge x 1/2 needle 1 ea Miscellaneous AC & HS Qty: 360 3RF Rx Instructions: 5mm/31G mini single use. For diabetes control (DME) lancets [[employer] SureSoft Lancing Dev] misc 1 ea Miscellaneous QID Qty: 480 3RF Rx Instructions: E11.9 to maintain A1C less than 7.0 , test TID diphenoxylate-atropine [Lomotil] 2.5-0.025 mg tablet 1 tab PO TID insulin aspart U-100 [Novolog FlexPen U-100 Insulin] 100 unit/mL (3 mL) insulin pen 15 - 30 unit subcut TID Rx Instructions: ICR 1u:18grams of carb at the start of each meal. EO calcium carb,lactat-vitamin D3 200 mg calcium -250 unit tablet 2 tab PO DAILY Creon 24,000-76,000 -120,000 unit capsule,delayed release(DR/EC) 1 cap PO BID Rx Instructions: administer with meals and/or snacks atorvastatin 10 mg tablet 20 mg PO DAILY Patient Comments: pt states he takes i tab every other day magnesium 250 mg tablet 250 mg PO .QOD Levemir FlexTouch U100 Insulin 100 unit/mL (3 mL) insulin pen 30 unit subcut QHS Patient Comments: Pt is up to 32 units. insulin glargine 100 unit/mL (3 mL) insulin pen 32 unit subcut QPM loperamide 2 mg capsule 2 mg PO DAILY diclofenac sodium 3 % gel 1 applic topical BID multivitamin [Daily Multi-Vitamin] 1 EACH tablet 1 ea PO .QOD glucosamine sulfate 2KCl 1,000 MG tablet 1,000 mg PO BID (DME) blood glucose control, normal [Fora Normal Control] 1 EACH solution 1 ea Miscellaneous PRN Qty: 1 Rx Instructions: to use each time a new Lot # of test strips are opened. Dx: E11.69 (DME) OneTouch Ultra Test strip 1 ea Miscellaneous QID Qty: 270 4RF Rx Instructions: to test blood sugar to keep HGB AIC less than 7, test TID, E11.65 omega-3 fatty acids-fish oil 300-1,000 mg capsule 1 cap PO QPM psyllium husk [Metamucil] 0.52 gram capsule 0.52 g PO BID Rx Instructions: as directed, for constipation following bowel surgery acetaminophen [Arthritis Pain Relief (acetam)] 650 MG tablet extended release 1,300 mg PO BID empagliflozin 25 mg tablet 12.5 mg PO DAILY magnesium gluconate 27 mg magnesium (500 mg) tablet 27 mg PO DAILY baclofen 5 mg granules in packet 5 mg PO ONCE lidocaine 5 % adhesive patch,medicated 1 patch topical DAILY PRN Rx Instructions: leave on most painful area for up to 12 hrs Lutein Plus With Zeaxanthin 1,500 mcg-60 mg -20 mg-15 mg tablet 1 tab PO ferrous sulfate 325 mg (65 mg iron) Tablet 325 mg PO Q OTHER DAY HPI General Date/Time Provider Initiated Documentation: 08/17/24 05:23 . HPI Narrative: This is a 74-year-old male with a past medical history of ulcerative colitis, colon cancer, colectomy and pancreectomy, chronic bronchiectasis, insulin- dependent diabetes mellitus post pancreectomy, who [facility], who presents today for evaluation of abdominal pain and nausea. Pain began at around 2:30 AM, it is generalized throughout the abdomen. Last bowel movement was at around midnight. He has had nausea but no vomiting. Pain is crampy and comes and goes in severity. He states that it feels identical to his previous small bowel obstructions in the past. He denies fever or chills. He denies numbness or tingling. No chest pain or shortness of breath. No other complaints at this time. Related Data Home Medications ?Medication ?Instructions ?Recorded ?Confirmed glucosamine sulfate 2KCl 1,000 mg 1,000 mg PO BID 06/16/12 12/22/23 tablet multivitamin (Daily Multi-Vitamin 1 ea PO .QOD 06/16/12 12/22/23 tablet) blood glucose control, normal ##1 12/29/15 08/12/23 (Fora Normal Control solution) acetaminophen 650 mg 1,300 mg PO BID 09/10/16 08/17/24 tablet,extended release (Arthritis Pain Relief (acetaminophen) ER) pen needle, diabetic 29 gauge x ##360 01/19/18 12/22/23 1/2 (BD Ultra-Fine Original Pen Needle) lancets ([employer] SureSoft Lancing #480 ea 09/04/18 12/22/23 Devices) blood sugar diagnostic (TaleSpringTouch #270 strips 09/17/18 12/22/23 Ultra Test strips) calcium carb and lactate 200 2 tab PO DAILY 12/30/19 12/22/23 mg-vitamin D3 6.25 mcg (250 unit) tablet diphenoxylate-atropine 2.5 1 tab PO TID 12/30/19 08/12/23 mg-0.025 mg tablet (Lomotil) insulin aspart U-100 100 unit/mL 15 - 30 unit subcut TID 12/30/19 08/17/24 (3 mL) subcutaneous pen (Novolog FlexPen U-100 Insulin aspart) omega-3 fatty acids-fish oil 300 1 cap PO QPM 12/30/19 12/22/23 mg-1,000 mg capsule psyllium husk 0.52 gram capsule 0.52 g PO BID 12/30/19 12/22/23 (Metamucil) oxrfhv-xkdblxxt-wrawoti 1 cap PO BID 11/20/20 08/17/24 24,000-76,000-120,000 unit capsule,delayed rel (Creon) atorvastatin 10 mg tablet 20 mg PO DAILY 12/27/20 08/17/24 magnesium 250 mg tablet 250 mg PO .QOD 08/08/21 12/22/23 insulin detemir U-100 100 unit/mL 30 unit subcut QHS 10/18/21 12/14/22 (3 mL) subcutaneous pen (Levemir FlexTouch U-100 Insulin) celecoxib 200 mg capsule (Celebrex) 200 mg PO DAILY 11/19/21 08/17/24 omeprazole 40 mg capsule,delayed 20 mg PO DAILY 11/19/21 08/17/24 release ferrous sulfate 325 mg (65 mg 325 mg PO Q OTHER DAY 11/23/21 12/22/23 iron) tablet sulfamethoxazole 800 1 tab PO BID #14 tabs 12/12/22 12/12/22 mg-trimethoprim 160 mg tablet (Bactrim DS) levalbuterol HCl 0.63 mg/3 mL 0.21 mg inhalation Q6H PRN 08/12/23 08/17/24 solution for nebulization shortness of breath or wheezing #180 mL diclofenac sodium 3 % topical gel 1 applic topical BID 12/10/23 12/22/23 insulin glargine 100 unit/mL (3 32 unit subcut QPM 12/10/23 08/17/24 mL) subcutaneous pen loperamide 2 mg capsule 2 mg PO DAILY 12/10/23 08/17/24 baclofen 5 mg oral granules in 5 mg PO ONCE 08/17/24 08/17/24 packet empagliflozin 25 mg tablet 12.5 mg PO DAILY 08/17/24 08/17/24 lidocaine 5 % topical patch 1 patch topical DAILY PRN 08/17/24 08/17/24 magnesium gluconate 27 mg 27 mg PO DAILY 08/17/24 08/17/24 magnesium (500 mg) tablet vit A 1,500 mcg-C 60 mg-E 20 1 tab PO 08/17/24 mg-zinc ox-copper ul-xdkhcz-ddar tablet (Lutein Plus With Zeaxanthin) Previous Rx's ?Medication ?Instructions ?Recorded pen needle, diabetic 29 gauge x ##360 01/19/1804/01 (BD Ultra-Fine Original Pen Needle) lancets ([employer] SureSoft Lancing #480 ea 09/04/18 Devices) blood sugar diagnostic ([employer] #270 strips 09/17/18 Ultra Test strips) sulfamethoxazole 800 1 tab PO BID #14 tabs 12/12/22 mg-trimethoprim 160 mg tablet (Bactrim DS) levalbuterol HCl 0.63 mg/3 mL 0.21 mg inhalation Q6H PRN 08/12/23 solution for nebulization shortness of breath or wheezing #180 mL Allergies Allergy/AdvReac Type Severity Reaction Status Date / Time latex Allergy Unknown RASH Verified 08/17/24 05:36 azathioprine AdvReac Severe Sepsis Verified 08/17/24 05:36 NEOPRENE Allergy Unknown RASH/REDNES Uncoded 08/17/24 05:36 S General Stated Complaint: Abd Prob ANNIE: 3 Exam Narrative Exam Narrative: 1.Const: Well-nourished, Well-developed, appearing stated age 2.Eyes: PERRL, no conjunctival injection, and symmetrical lids. 3.ENT: Atraumatic external nose and ears. Moist MM. Neck: Symmetric, trachea midline, No thyromegaly. 4.CVS: +S1/S2, Peripheral pulses 2+ and equal in all extremities. Brisk capillary refill in all extremities. 5.RESP: Unlabored respiratory effort. Clear to auscultation bilaterally. No wheezes rales or rhonchi 6.GI: Soft, nondistended, generalized tenderness throughout. No guarding or rebound. 7.MSK: Normocephalic/Atraumatic, Extremities w/o deformity or ttp No cyanosis or clubbing, Normal movement of all extremities 8.Skin: Warm, Dry. No rashes or lesions. 9.Neuro: radiology special procedure tech II-XII grossly intact. Sensation grossly intact, no focal neurologic deficits. 10.Psych: (AAO) x3. Appropriate mood and affect Course Vital Signs Vital signs: Vital Signs Temperature 36.4 C L 08/17/24 05:25 Pulse 63 08/17/24 05:25 Respiratory Rate 18 08/17/24 05:25 Blood Pressure 141/91 H 08/17/24 05:25 Pulse Oximetry 100 08/17/24 05:25 Temperature 36.4 C L 08/17/24 05:29 Temperature Source Oral 08/17/24 05:29 Pulse 59 L 08/17/24 05:29 Respiratory Rate 18 08/17/24 05:29 Blood Pressure 167/84 H 08/17/24 05:29 Pulse Oximetry 99 08/17/24 05:29 Oxygen Delivery Method Room Air 08/17/24 05:29 Pain Level 5 08/17/24 05:29 Medical Decision Making This is a 74-year-old male with a past medical history of ulcerative colitis, colon cancer, colectomy and pancreectomy, chronic bronchiectasis, insulin- dependent diabetes mellitus post pancreectomy, who is a [facility], who presents today for evaluation of abdominal pain and nausea. Pain began at around 2:30 AM, it is generalized throughout the abdomen. Last bowel movement was at around midnight. He has had nausea but no vomiting. Pain is crampy and comes and goes in severity. He states that it feels identical to his previous small bowel obstructions in the past. He denies fever or chills. He denies numbness or tingling. No chest pain or shortness of breath. No other complaints at this time. Exam demonstrates mild generalized tenderness throughout, no guarding or rebound. Bowel sounds notably present. Differential includes gastroenteritis, small bowel obstruction, cholecystitis. Will treat with Ofirmev for pain control, rehydrate, get CT imaging, monitor closely and reassess. 7:28 AM Patient's laboratory workup demonstrates mild white count at 12.4, elevated lactate at 2.5. He was rehydrated with a liter of IV fluids, and is currently getting maintenance fluids at 150 an hour. Electrolytes stable, creatinine 1.5. Urinalysis shows no evidence of infection. CT scan shows evidence of small bowel obstruction. There is also some tissue density nodularity in the post anterior bladder, concerning for potential prostate neoplasm. Patient has not yet vomited, so we will perform oral contrast challenge. We did contact the [facility] for permission to admit here, they state that they will not be able to give us an answer till 9 AM. I did contact the hospitalist Dr. Talbot and made him aware of the case. We are awaiting PR's formal feedback with subsequent plan to admit. FINDINGS: Limitations: Mild motion artifact. Lungs: Scarring/atelectasis in the lungs. Liver: No focal hepatic lesion identified. Gallbladder and biliary ducts: No radiodense gallbladder calculi seen. Pancreas: Pancreatectomy. Spleen: No splenomegaly. Adrenal glands: No mass. Kidneys and ureters: Renal cysts. Stomach and bowel: Gastric distension. Prominent gastroesophageal varices. Multiple dilated air and fluid-filled small bowel loops are identified and collapsed loops are also seen. Findings are consistent with small bowel obstruction. Transition point is seen in the pelvis. Collapsed small bowel in the pelvis appears mildly thickened. Prior colonic resection. Appendix: No evidence of appendicitis. Intraperitoneal space: Mesenteric stranding. Vasculature: Prominent gastroesophageal varices Lymph nodes: No acute findings. Urinary bladder: No acute findings. Reproductive: Soft tissue density nodularity in the posterior bladder, may be contiguous with the prostate. Bones/joints: Chronic endplate deformities in the spine. Soft tissues: No pertinent acute abnormality seen. IMPRESSION: 1. Findings consistent with small bowel obstruction as described above. Mild thickening of small bowel loops in the pelvis suboptimally evaluated due to incomplete distension but could reflect enteritis. Internal/adhesions should also be considered. Clinical correlation advised. 2. Soft tissue density nodularity in the posterior bladder. Cannot exclude prostatic or bladder neoplasm. Follow-up as clinically warranted. 3. Additional findings as above. Thank you for allowing us to participate in the care of your patient. Dictated and Authenticated by: Vee Parkinson MD 08/17/2024 6:47 AM Eastern Time ([place] & [place]) Quality:SDOH Health Related Social Needs: No Data to Display 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) h/o Mitral prolapse, not heard 07/2013; ?S3 Dr Jay 08/11; actually PAC I think Gastroesophageal reflux disease without esophagitis (Chronic 06/20/11) EGD with Dilatation 07/2013 Pierre (pt declines to see him again) Headache (Chronic 06/20/11) Hearing loss (Chronic 06/20/11) Lower urinary tract symptoms (LUTS) (Chronic 09/27/15) Cystoscopy 09/2015: TORIBIO 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) legs jump at night, kicks ; continues; also h/o conversion movement disorder (Thadani) Personal history of other diseases of the digestive system (Chronic 05/01/88) Ulcerative Colitis; s/p colectomy 1992; yearly check -->Dr Fermin [facility] for 2014; pouchoscopy q 2yr Pain, joint, multiple sites (Chronic 06/20/11) Postprocedural urethral stricture, male, 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) Sleep disturbance, unspecified (Chronic 06/20/11) Status post colectomy (Chronic 05/01/88) Ulcerative Colitis; s/p colectomy 1992; yearly check -->Dr Fermin [facility] for 2014; pouchoscopy q 2yr Uncontrolled type 2 diabetes mellitus with hyperglycemia, with long-term current use of insulin (Chronic 08/27/16) goal A1c <7.6 Enteropathic arthritis (Chronic) 01/02/18 Dr Gutierres, [facility] Rheumatology Shoulder pain (Acute 04/15/14) Tinnitus (Acute 04/05/13) Impacted cerumen (Acute 04/05/13) History of total colectomy (Acute 07/29/14) Globus sensation (Acute 04/05/13) Dysphagia (Acute 06/15/13) Diabetes mellitus (Acute 01/30/04) Cough (Acute 04/05/13) Nocturnal leg cramps (Acute) Bronchiectasis (Acute) Emphysema lung (Acute) Medical History (Updated 08/17/24 @ 07:29 by Jaxon Feng DO) Hernia, inguinal, right Surgical History (Updated 12/05/21 @ 22:06 by Kin Gao MD) S/P inguinal herniorrhaphy using synthetic patch History of partial pancreatectomy Pt. states he 10/17/03 had part of his pancreas removed Transurethral prostatectomy (11/23/15) Pouch endoscopy (11/25/14) Dr. Matthew Fermin Colorectal surgery [facility] EGD - IV Sedation (11/04/16) Family History Mother , Breast Cancer at age 73. Cancer Sister Cancer breast Brother Cancer pancreatic Social History Smoking/Tobacco Use Status: Never Smoking risk assessment performed?: Yes Alcohol Intake: former Drug use: Never Substance use type: does not use and former substance user Adopted: No Caregiver/Support person: No Foster care: No Household members: spouse Housing: house Number of Children: 0 current occupation: worked at [employer] What is your relationship status?: Panel score (0-1 are the most socially isolated patients): 1 What type of physical activity do you participate in: walking Duration: 15-30 minutes/day Frequency: 3-4 times per week Seatbelt use: always Drive intox or ride w/intox route sales delivery driver: No Water heater temp set <120 deg: Yes Working smoke detector in home: Yes Fire extinguisher in home: Yes Carbon monox detector in home: Yes Do you feel safe at home: Yes Do you feel safe in your relationship?: Yes
[2024-08-17 05:41] LABS: Abs Immature Grans 0.03 10^3/uL (0.0-0.06); Absolute Basophil Count 0.09 10^3/uL (0.0-0.2); Absolute Eosinophil Count 0.21 10^3/uL (0.0-0.7); Absolute Lymphocyte Count 1.72 10^3/uL (1.2-3.4); Absolute Monocyte Count 0.85 10^3/uL (0.1-0.8); Basophils % 0.7 %; Eosinophils % 1.7 %; HCT 48.3 % (40.0-50.0); HGB 15.3 g/dL (13.5-17.5); Immature Grans % 0.2 %; Lymphocytes % 13.8 %; MCH 28.2 pg (27.0-33.0); MCHC 31.7 % (32.0-36.0); MCV 89 fL (80-95); MPV 10.4 fL (8.0-11.0); Monocytes % 6.8 %; Neutrophils % 76.8 %; Platelet Count 262 10^3/uL (130-400); RBC 5.42 10^6/uL (4.36-5.78); RDW 12.7 % (11.8-14.1); RDW-SD 41.8 fL; WBC 12.43 10^3/uL (4.4-10.8)
[2024-08-17 05:43] LABS: Absolute Neutrophil Count 9.55 10^3/uL (1.2-6.7); Lactate 2.5 mmol/L (<or=2.0)
[2024-08-17] MEDS: Ondansetron 4 MG/2 ML VIAL IVP (05:44)
[2024-08-17] MEDS: Lactated Ringers 1,000 ML 1000 ML IV (05:46)
[2024-08-17 06:00] LABS: ALT 27 U/L (16-63); AST 31 U/L (15-37); Albumin 4.2 g/dL (3.4-5.0); Alkaline Phosphatase 120 U/L (46-116); Anion Gap 10.7 mmol/L (3-11); BUN 33 mg/dL (7-18); Bilirubin, Total 0.6 mg/dL (0.2-1.0); CO2 28.3 mmol/L (21.0-32.0); CREATININE 1.5 mg/dL (0.70-1.30); Calcium 9.6 mg/dL (8.5-10.1); Chloride 104 mmol/L (98-107); Estimated GFR 48.55 (mL/min/1.73m2); Glucose 132 mg/dL (74-106); Lipase 15 U/L (<78); Potassium 3.9 mmol/L (3.5-5.1); Sodium 143 mmol/L (136-145); Total Protein 7.5 g/dL (6.4-8.2)
[2024-08-17] MEDS: Omnipaque 350 MG/ML 100 ML BTL IJ (06:06)
[2024-08-17] MEDS: Normal Saline - Diluent 50 ML VIAL IJ (06:08)
[2024-08-17 06:13] LABS: Bilirubin Negative (Negative); Blood Negative (Negative); Clarity Clear (Clear); Glucose 500 mg/dL (Negative); Ketones 15 mg/dL (Negative); Leukocyte Esterase Negative (Negative); Nitrite Negative (Negative); Urobilinogen 0.2 mg/dL (Up to 0.2); pH 5.5 (5-8)
[2024-08-17 06:21] LABS: Bacteria Few HPF (Negative); C & S Indicated? No; Casts 0-2 Hyaline LPF (Negative); Crystals Negative HPF (Negative); Epithelial Cells Few HPF (Negative); Mucus Moderate (Negative); RBC 0-2 HPF (0-2); WBC 0-2 HPF (0-5)
--- NOTE | 2024-08-17 06:47 | DI.VRAD_ITS ---
Addendum created by Vee Parkinson MD on 08/17/2024 6:49:37 AM EDT: THIS REPORT CONTAINS FINDINGS THAT MAY BE CRITICAL TO PATIENT CARE. The findings were verbally communicated via telephone conference with FRITZ PRICE at 6:49 AM EDT on 08/17/2024. The findings were acknowledged and understood. Initial report created on 08/17/2024 6:47:13 AM EDT: PROCEDURE INFORMATION: Exam: CT Abdomen And Pelvis With Contrast Exam date and time: 08/17/2024 6:08 AM Age: 74 years old Clinical indication: Abdominal pain; Generalized; Prior surgery; Surgery date: 6+ months; Surgery type: Hernia repair, partia; Pancreatectomy, prostatectomy; HX of sbo TECHNIQUE: Imaging protocol: Computed tomography of the abdomen and pelvis with contrast. Radiation optimization: All CT scans at this facility use at least one of these dose optimization techniques: automated exposure control; mA and/or kV adjustment per patient size (includes targeted exams where dose is matched to clinical indication); or iterative reconstruction. Contrast material: OMNIPAQUE 350; Contrast volume: 75 ml; Contrast route: INTRAVENOUS (IV); COMPARISON: CT ABDOMEN PELVIS WO 10/29/2021 10:00 AM FINDINGS: Limitations: Mild motion artifact. Lungs: Scarring/atelectasis in the lungs. Liver: No focal hepatic lesion identified. Gallbladder and biliary ducts: No radiodense gallbladder calculi seen. Pancreas: Pancreatectomy. Spleen: No splenomegaly. Adrenal glands: No mass. Kidneys and ureters: Renal cysts. Stomach and bowel: Gastric distension. Prominent gastroesophageal varices. Multiple dilated air and fluid-filled small bowel loops are identified and collapsed loops are also seen. Findings are consistent with small bowel obstruction. Transition point is seen in the pelvis. Collapsed small bowel in the pelvis appears mildly thickened. Prior colonic resection. Appendix: No evidence of appendicitis. Intraperitoneal space: Mesenteric stranding. Vasculature: Prominent gastroesophageal varices Lymph nodes: No acute findings. Urinary bladder: No acute findings. Reproductive: Soft tissue density nodularity in the posterior bladder, may be contiguous with the prostate. Bones/joints: Chronic endplate deformities in the spine. Soft tissues: No pertinent acute abnormality seen. IMPRESSION: 1. Findings consistent with small bowel obstruction as described above. Mild thickening of small bowel loops in the pelvis suboptimally evaluated due to incomplete distension but could reflect enteritis. Internal/adhesions should also be considered. Clinical correlation advised. 2. Soft tissue density nodularity in the posterior bladder. Cannot exclude prostatic or bladder neoplasm. Follow-up as clinically warranted. 3. Additional findings as above. Dictated and Authenticated by: Vee Parkinson MD. Orderin Ping Coates MD
[2024-08-17] MEDS: Normal Saline 1,000 ML 150 ML IV (07:26)
--- NOTE | 2024-08-17 09:05 | W.EDPROG ---
Date of service: 08/17/24 Time of Service: 07:30 Medical Decision Making In brief, this is a 74-year-old male patient who presented to our emergency department with abdominal pain and was found to have a small bowel obstruction and a mildly elevated lactate to 2.5. At the time that I took over his care, his disposition was pending review by the [place] [facility] and hospitalist team to determine if he would require transfer to their department for surgical intervention. The prior provider ordered a gastrograffin challenge, which was unfortunately delayed and reordered by this provider. He has not had vomiting, has not required NG tube placement, and is feeling quite well. The team at the [facility] reviewed his case, and feel that he would be appropriate for medical management at this time and does not warrant emergent transfer for surgical intervention. Additionally, they feel that this is not unreasonable to do at our hospital, which is the patient's preference. For this reason I reached out to our hospitalist team who is graciously accepted this patient for admission to their service for ongoing workup and management. The 6-hour x-ray will be ordered by that provider as the Gastrografin is still coming from pharmacy. Patient is hemodynamically appropriate and comfortable while under my care and transferred to the inpatient team without incident. Selina Woods MD Medical Records Medical records reviewed: Yes I reviewed the patient's medical records. Lab Data Lab results reviewed: Yes I reviewed the patient's lab results. Quality:SCOH Health Related Social Needs: No Data to Display Discharge Plan Disposition Patient Disposition: Admit to [facility] Condition: Stable Discharge Details Chief Complaint: Abd Prob Clinical Impression: Small bowel obstruction Primary Care Provider: Sanya Braden ED Provider: Selina Woods Home Meds and New Rx's Prescriptions: No Action omeprazole 40 mg capsule,delayed release(DR/EC) 20 mg PO DAILY celecoxib [Celebrex] 200 mg capsule 200 mg PO DAILY sulfamethoxazole-trimethoprim [Bactrim DS] 800-160 mg tablet 1 tab PO BID Qty: 14 0RF levalbuterol HCl 0.63 mg/3 mL solution for nebulization 0.21 mg inhalation Q6H PRN (Reason: shortness of breath or wheezing) Qty: 180 12RF (DME) pen needle, diabetic [BD Ultra-Fine Orig Pen Needle] 29 gauge x 1/2 needle 1 ea Miscellaneous AC & HS Qty: 360 3RF Rx Instructions: 5mm/31G mini single use. For diabetes control (DME) lancets [OneTouch SureSoft Lancing Dev] misc 1 ea Miscellaneous QID Qty: 480 3RF Rx Instructions: E11.9 to maintain A1C less than 7.0 , test TID diphenoxylate-atropine [Lomotil] 2.5-0.025 mg tablet 1 tab PO TID insulin aspart U-100 [Novolog FlexPen U-100 Insulin] 100 unit/mL (3 mL) insulin pen 15 - 30 unit subcut TID Rx Instructions: Sliding scale Based on BGL + amount of carbs consumed calcium carb,lactat-vitamin D3 200 mg calcium -250 unit tablet 2 tab PO DAILY Creon 24,000-76,000 -120,000 unit capsule,delayed release(DR/EC) 1 cap PO BID Rx Instructions: administer with meals and/or snacks atorvastatin 10 mg tablet 20 mg PO DAILY Patient Comments: pt states he takes i tab every other day Levemir FlexTouch U100 Insulin 100 unit/mL (3 mL) insulin pen 30 unit subcut QHS Patient Comments: Pt is up to 32 units. insulin glargine 100 unit/mL (3 mL) insulin pen 32 unit subcut QPM loperamide 2 mg capsule 2 mg PO DAILY diclofenac sodium 3 % gel 1 applic topical BID multivitamin [Daily Multi-Vitamin] 1 EACH tablet 1 ea PO .QOD glucosamine sulfate 2KCl 1,000 MG tablet 1,000 mg PO BID (DME) blood glucose control, normal [Fora Normal Control] 1 EACH solution 1 ea Miscellaneous PRN Qty: 1 Rx Instructions: to use each time a new Lot # of test strips are opened. Dx: E11.69 (DME) OneTouch Ultra Test strip 1 ea Miscellaneous QID Qty: 270 4RF Rx Instructions: to test blood sugar to keep HGB AIC less than 7, test TID, E11.65 omega-3 fatty acids-fish oil 300-1,000 mg capsule 1 cap PO QPM psyllium husk [Metamucil] 0.52 gram capsule 0.52 g PO BID Rx Instructions: as directed, for constipation following bowel surgery acetaminophen [Arthritis Pain Relief (acetam)] 650 MG tablet extended release 1,300 mg PO BID empagliflozin 25 mg tablet 12.5 mg PO DAILY magnesium gluconate 27 mg magnesium (500 mg) tablet 27 mg PO DAILY baclofen 5 mg granules in packet 5 mg PO ONCE lidocaine 5 % adhesive patch,medicated 1 patch topical DAILY PRN Rx Instructions: leave on most painful area for up to 12 hrs Lutein Plus With Zeaxanthin 1,500 mcg-60 mg -20 mg-15 mg tablet 1 tab PO DAILY ferrous sulfate 325 mg (65 mg iron) Tablet 325 mg PO Q OTHER DAY
[2024-08-17] MEDS: Gastrografin 120 ML BTL PO (10:10)
--- NOTE | 2024-08-17 10:13 | NUR.NOTE ---
Nursing Note: Delay in obtaining gastrografin. Order needed to be changed, mult phone calls to pharmacy. Patient started consuming at 1010.
--- NOTE | 2024-08-17 13:59 | W.PC.ACHO ---
Registration Status: Primary Language: Preferred Language: ED Information & Data Chief Complaint Abd Prob 08/17/24 05:37 Triage Note PT has HX of SBO, PT also 08/17/24 05:25 states that his BG has been unregulated. PT states that he has ABD pain Medical / Surgical History (Last Updated 12/05/21 @ 22:06 by Kin Gao MD) Hernia, inguinal, right (Last Updated 12/05/21 @ 22:06 by Kin Gao MD) S/P inguinal herniorrhaphy using synthetic patch History of partial pancreatectomy Transurethral prostatectomy (11/23/15) Pouch endoscopy (11/25/14) EGD - IV Sedation (11/04/16) Most Recent Vital Signs Temperature 36.4 C L 08/17/24 12:53 Temperature Source Oral 08/17/24 05:29 Pulse 78 08/17/24 12:53 Pulse Rhythm Regular 08/17/24 12:53 Pulse 67 08/17/24 11:40 Respiratory Rate 16 08/17/24 12:53 Respiratory Effort Normal 08/17/24 12:53 Respiratory Depth Normal 08/17/24 12:53 Respiratory Pattern Normal 08/17/24 12:53 Blood Pressure 111/72 08/17/24 12:53 Blood Pressure Mean 96 08/17/24 11:31 Pulse Oximetry 94 08/17/24 12:53 Oxygen Delivery Method Room Air 08/17/24 12:53 Oxygen Flow Rate 0 08/17/24 12:53 Pain Level 6 08/17/24 12:53 Allergies latex Allergy (Unknown, Verified 08/17/24 05:36) RASH azathioprine Adverse Reaction (Severe, Verified 08/17/24 05:36) Sepsis AKA - Imuran NEOPRENE Allergy (Unknown, Uncoded 08/17/24 05:36) RASH/REDNESS Active Medications Generic Name Dose Route Start Last Admin Trade Name Freq PRN Reason Stop Dose Admin Diatrizoate Meglum/Diatrizoate Sod 120 ml 08/17/24 09:00 08/17/24 10:10 Gastrografin 120 Ml Btl PO 120 ml DIRECTED SHAWNA Administration Iohexol 100 ml 08/17/24 06:15 08/17/24 06:06 Omnipaque 350 Mg/Ml 100 Ml Btl IJ 09/16/24 23:59 75 ml DIRECTED SHAWNA Administration Sodium Chloride 50 ml 08/17/24 06:15 08/17/24 06:08 Normal Saline - Diluent 50 Ml Vial IJ 50 ml .FOR DI USE SHAWNA Administration IV IV Catheter Type [Right Peripheral IV Antecubital] IV Catheter Gauge [Right 18 Antecubital] Diet Orders Category Date Time Status Nothing Per Oral [DIET] Nutrition 08/17/24 Lunch Active Diagnostics 08/17/24 08/17/24 Range/Units 05:53 05:30 WBC 12.43 H (4.4-10.8) 10^3/uL RBC 5.42 (4.36-5.78) 10^6/uL Hgb 15.3 (13.5-17.5) g/dL Hct 48.3 (40.0-50.0) % MCV 89 (80-95) fL MCH 28.2 (27.0-33.0) pg MCHC 31.7 L (32.0-36.0) % RDW 12.7 (11.8-14.1) % Plt Count 262 (130-400) 10^3/uL MPV 10.4 (8.0-11.0) fL Immature Gran % 0.2 % Neutrophils % 76.8 % Lymphocytes % 13.8 % Monocytes % 6.8 % Eosinophils % 1.7 % Basophils % 0.7 % Nucleated RBC % 0.0 (0.0-0.3) % Absolute Neutrophils 9.55 H (1.2-6.7) 10^3/uL Absolute Lymphocytes 1.72 (1.2-3.4) 10^3/uL Absolute Monocytes 0.85 H (0.1-0.8) 10^3/uL Absolute Eosinophils 0.21 (0.0-0.7) 10^3/uL Absolute Basophils 0.09 (0.0-0.2) 10^3/uL VBG Lactate 2.5 H* (<or=2.0) mmol/L Sodium 143 (136-145) mmol/L Potassium 3.9 (3.5-5.1) mmol/L Chloride 104 (98-107) mmol/L Carbon Dioxide 28.3 (21.0-32.0) mmol/L Anion Gap 10.7 (3-11) mmol/L BUN 33 H (7-18) mg/dL Creatinine 1.5 H (0.70-1.30) mg/dL Est GFR (CKD-EPI 2020) 48.55 (mL/min/1.73m2) Glucose 132 H (74-106) mg/dL Calcium 9.6 (8.5-10.1) mg/dL Total Bilirubin 0.6 (0.2-1.0) mg/dL AST 31 (15-37) U/L ALT 27 (16-63) U/L Alkaline Phosphatase 120 H (46-116) U/L Total Protein 7.5 (6.4-8.2) g/dL Albumin 4.2 (3.4-5.0) g/dL Lipase 15 (<78) U/L Urine Color Yellow (Yellow) Urine Clarity Clear (Clear) Urine pH 5.5 (5-8) Ur Specific [place] 1.020 (1.005-1.025) Urine Protein 30 H (Neg-Trace) mg/dL Urine Ketones 15 H (Negative) mg/dL Urine Blood Negative (Negative) Urine Nitrite Negative (Negative) Urine Bilirubin Negative (Negative) Urine Urobilinogen 0.2 (Up to 0.2) mg/dL Ur Leukocyte Esterase Negative (Negative) Urine RBC 0-2 (0-2) HPF Urine WBC 0-2 (0-5) HPF Ur Epithelial Cells Few (Negative) HPF Urine Crystals Negative (Negative) HPF Urine Bacteria Few (Negative) HPF Urine Casts 0-2 Hyaline (Negative) LPF Urine Mucus Moderate (Negative) Ur Culture Indicated? No Urine Glucose 500 H (Negative) mg/dL [id number] Documentation Fingerstick Glucose Start: 08/17/24 05:35 Freq: Status: Active Protocol: Activity Type Activity Date Activity User E-sign Co-sign Detail Recorded Client Recorded Date Recorded By Document 08/17/24 05:33 BKG DAEMON(3) [id number] 08/17/24 05:35 BKG DAEMON(4) Intake and Output - 24 Hour Total 08/17/24 05:21 thru 08/17/24 12:53 Intake Total 1100 Output Total 600 Balance 500 Weight 86.6 kg Intake: IV 1100 Output: Urine 600 Other: Urine Appearance Clear Falls Risk Assessment History of Falls No History 08/17/24 12:53 Contributing Factors No Factors 08/17/24 12:53 Ambulatory Aids Independent 08/17/24 12:53 Tubes/Lines None 08/17/24 12:53 Gait Evaluation No gait disturbance 08/17/24 12:53 Cognition No cognitive impairment 08/17/24 12:53 Fall Total Score 0 08/17/24 12:53 Level of Risk Standard/Low Risk 08/17/24 12:53 Notes 08/17/24 10:13 Nursing Notes by Jacinta Presley Nursing Note: Delay in obtaining gastrografin. Order needed to be changed, mult phone calls to pharmacy. Patient started consuming at 1010. Initialized on 08/17/24 10:13 - END OF NOTE v v v v v v v v v Sending and/or Receiving Nurses: Please use comment section below to note any information pertinent to the patient hand-off not included above. Information / Comments: Pt came to ED with c/o abdominal pain. Pt has significant Hx of SBO. Pt is having pain 10/10 and nausea. has not had any vomiting as of yet. Pt arrived to unit and settled in to room. Pt is independent with ambulation and is a/o x 4 and able to make needs known. Pt oriented to room. Call valladares within reach. Report received from:
[2024-08-17] MEDS: MORPHine 2 MG/ML SYR IVP ×2 (14:00→18:04)
[2024-08-17] MEDS: Lidocaine 2% Jelly 6 ML SYR (15:15)
--- NOTE | 2024-08-17 15:56 | HPE_ITS ---
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 Will check an A1c does not get much in the past week. Been undertreated. Will start sliding scale until he is able to tolerate his normal diet. Patient is currently n.p.o. I will add glucometers every 6 hours until he is starting his diet again. (2) Small bowel obstruction: Status: Acute Assessment and plan: As mentioned above will place consult to general surgery patient is on EKG wall suction. He did have 1 episode of emesis on exam. Blood has since resolved and states he feels much better (3) Kidney stone: Status: Resolved Assessment and plan: Patient has a history of multiple kidney stones but currently not complaining of any flank pain. History of Present Illness History of Present Illness Chief Complaint: abd pain n/v Narrative: 74-year-old gentleman with multiple medical problems and multiple abdominal surgeries including colon cancer and status post colectomy partial pancreaectomy and now diabetes, as well as a history of ulcerative colitis. Patient states that he has colon removed approximately 35 years ago. Presents to the ED with worsening abdominal pain as well as nausea and vomiting. Imaging done in the ED were indicative of small bowel obstruction patient was subsequently admitted to the hospital service for further evaluation and treatment. Gastrografin has been given awaiting imaging. In reviewing his labs, the patient has noted to have mildly elevated white count of 12.43 mildly elevated lactic acid of 2.5 and elevated BUN/creatinine ratio 33/1.5 glucose 132 last A1c was 9.0 with his 2021 patient does have proteinuria as well as glucosuria. The patient did have an NG tube placed when he arrived to the floor. Have also placed a consult to general surgery. Of note the patient is not on an SRI inhibitor or SGLT inhibitors. 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) h/o Mitral prolapse, not heard 07/2013; ?S3 Dr Jay 08/11; actually PAC I think Gastroesophageal reflux disease without esophagitis (Chronic 06/20/11) EGD with Dilatation 07/2013 Pierre (pt declines to see him again) Headache (Chronic 06/20/11) Hearing loss (Chronic 06/20/11) Lower urinary tract symptoms (LUTS) (Chronic 09/27/15) Cystoscopy 09/2015: TORIBIO 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) legs jump at night, kicks ; continues; also h/o conversion movement disorder (Thadani) Personal history of other diseases of the digestive system (Chronic 05/01/88) Ulcerative Colitis; s/p colectomy 1992; yearly check -->Dr Fermin [facility] [place] for 2014; pouchoscopy q 2yr Pain, joint, multiple sites (Chronic 06/20/11) Postprocedural urethral stricture, male, 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) Sleep disturbance, unspecified (Chronic 06/20/11) Status post colectomy (Chronic 05/01/88) Ulcerative Colitis; s/p colectomy 1992; yearly check -->Dr Fermin [facility] [place] for 2014; pouchoscopy q 2yr Uncontrolled type 2 diabetes mellitus with hyperglycemia, with long-term current use of insulin (Chronic 08/27/16) goal A1c <7.6 Enteropathic arthritis (Chronic) 01/02/18 Dr Gutierres, [facility] Rheumatology Shoulder pain (Acute 04/15/14) Tinnitus (Acute 04/05/13) Impacted cerumen (Acute 04/05/13) History of total colectomy (Acute 07/29/14) Globus sensation (Acute 04/05/13) Dysphagia (Acute 06/15/13) Diabetes mellitus (Acute 01/30/04) Cough (Acute 04/05/13) Nocturnal leg cramps (Acute) Bronchiectasis (Acute) Emphysema lung (Acute) Medical History (Updated 08/17/24 @ 07:29 by Jaxon Feng DO) Hernia, inguinal, right Surgical History (Updated 12/05/21 @ 22:06 by Kin Gao MD) S/P inguinal herniorrhaphy using synthetic patch History of partial pancreatectomy Pt. states he 10/17/03 had part of his pancreas removed Transurethral prostatectomy (11/23/15) Pouch endoscopy (11/25/14) Dr. Matthew Fermin Colorectal surgery [facility] [place] EGD - IV Sedation (11/04/16) Family History Mother , Breast Cancer at age 73. Cancer Sister Cancer breast Brother Cancer pancreatic Social History Smoking/Tobacco Use Status: Never Smoking risk assessment performed?: Yes Alcohol Intake: former Drug use: Never Substance use type: does not use and former substance user Adopted: No Caregiver/Support person: No Foster care: No Household members: spouse Housing: house Number of Children: 0 current occupation: worked at [employer] What is your relationship status?: Panel score (0-1 are the most socially isolated patients): 1 What type of physical activity do you participate in: walking Duration: 15-30 minutes/day Frequency: 3-4 times per week Seatbelt use: always Drive intox or ride w/intox caterpillar driver: No Water heater temp set <120 deg: Yes Working smoke detector in home: Yes Fire extinguisher in home: Yes Carbon monox detector in home: Yes Do you feel safe at home: Yes Do you feel safe in your relationship?: Yes Meds Allergies and Home Medications Allergies Allergy/AdvReac Type Severity Reaction Status Date / Time latex Allergy Unknown RASH Verified 08/17/24 05:36 azathioprine AdvReac Severe Sepsis Verified 08/17/24 05:36 NEOPRENE Allergy Unknown RASH/REDNES Uncoded 08/17/24 05:36 S Home Medications ?Medication ?Instructions ?Recorded ?Confirmed ?Type glucosamine sulfate 2KCl 1,000 mg 1,000 mg PO BID 06/16/12 08/17/24 History tablet multivitamin (Daily Multi-Vitamin 1 ea PO .QOD 06/16/12 08/17/24 History tablet) blood glucose control, normal ##1 12/29/15 08/17/24 History (Fora Normal Control solution) acetaminophen 650 mg 1,300 mg PO BID 09/10/16 08/17/24 History tablet,extended release (Arthritis Pain Relief (acetaminophen) ER) pen needle, diabetic 29 gauge x ##360 01/19/18 08/17/24 Rx 1/2 (BD Ultra-Fine Original Pen Needle) lancets ([email or web address] SureSoft Lancing #480 ea 09/04/18 08/17/24 Rx Devices) blood sugar diagnostic ([email or web address] #270 strips 09/17/18 08/17/24 Rx Ultra Test strips) calcium carb and lactate 200 2 tab PO DAILY 12/30/19 08/17/24 History mg-vitamin D3 6.25 mcg (250 unit) tablet diphenoxylate-atropine 2.5 1 tab PO TID 12/30/19 08/17/24 History mg-0.025 mg tablet (Lomotil) insulin aspart U-100 100 unit/mL 15 - 30 unit subcut TID 12/30/19 08/17/24 History (3 mL) subcutaneous pen (Novolog FlexPen U-100 Insulin aspart) omega-3 fatty acids-fish oil 300 1 cap PO QPM 12/30/19 08/17/24 History mg-1,000 mg capsule psyllium husk 0.52 gram capsule 0.52 g PO BID 12/30/19 08/17/24 History (Metamucil) mkeitd-nrkyapvw-mwevqve 1 cap PO BID 11/20/20 08/17/24 History 24,000-76,000-120,000 unit capsule,delayed rel (Creon) atorvastatin 10 mg tablet 20 mg PO DAILY 12/27/20 08/17/24 History insulin detemir U-100 100 unit/mL 30 unit subcut QHS 10/18/21 08/17/24 History (3 mL) subcutaneous pen (Levemir FlexTouch U-100 Insulin) celecoxib 200 mg capsule (Celebrex) 200 mg PO DAILY 11/19/21 08/17/24 History omeprazole 40 mg capsule,delayed 20 mg PO DAILY 11/19/21 08/17/24 History release ferrous sulfate 325 mg (65 mg 325 mg PO Q OTHER DAY 11/23/21 08/17/24 History iron) tablet sulfamethoxazole 800 1 tab PO BID #14 tabs 12/12/22 08/17/24 Rx mg-trimethoprim 160 mg tablet (Bactrim DS) levalbuterol HCl 0.63 mg/3 mL 0.21 mg inhalation Q6H PRN 08/12/23 08/17/24 Rx solution for nebulization shortness of breath or wheezing #180 mL diclofenac sodium 3 % topical gel 1 applic topical BID 12/10/23 08/17/24 History insulin glargine 100 unit/mL (3 32 unit subcut QPM 12/10/23 08/17/24 History mL) subcutaneous pen loperamide 2 mg capsule 2 mg PO DAILY 12/10/23 08/17/24 History baclofen 5 mg oral granules in 5 mg PO ONCE 08/17/24 08/17/24 History packet empagliflozin 25 mg tablet 12.5 mg PO DAILY 08/17/24 08/17/24 History lidocaine 5 % topical patch 1 patch topical DAILY PRN 08/17/24 08/17/24 History magnesium gluconate 27 mg 27 mg PO DAILY 08/17/24 08/17/24 History magnesium (500 mg) tablet vit A 1,500 mcg-C 60 mg-E 20 1 tab PO DAILY 08/17/24 08/17/24 History mg-zinc ox-copper yz-jmdnby-umyx tablet (Lutein Plus With Zeaxanthin) Results Labs 08/17/24 05:30 08/17/24 05:30 Labs: Laboratory Results - last 24 hr 08/17/24 08/17/24 05:30 05:53 WBC 12.43 H RBC 5.42 Hgb 15.3 Hct 48.3 MCV 89 MCH 28.2 MCHC 31.7 L RDW 12.7 Plt Count 262 MPV 10.4 Immature Gran % 0.2 Neutrophils % 76.8 Lymphocytes % 13.8 Monocytes % 6.8 Eosinophils % 1.7 Basophils % 0.7 Nucleated RBC % 0.0 Absolute Neutrophils 9.55 H Absolute Lymphocytes 1.72 Absolute Monocytes 0.85 H Absolute Eosinophils 0.21 Absolute Basophils 0.09 VBG Lactate 2.5 H* Sodium 143 Potassium 3.9 Chloride 104 Carbon Dioxide 28.3 Anion Gap 10.7 BUN 33 H Creatinine 1.5 H Est GFR (CKD-EPI 2020) 48.55 Glucose 132 H Calcium 9.6 Total Bilirubin 0.6 AST 31 ALT 27 Alkaline Phosphatase 120 H Total Protein 7.5 Albumin 4.2 Lipase 15 Urine Color Yellow Urine Clarity Clear Urine pH 5.5 Ur Specific [place] 1.020 Urine Protein 30 H Urine Ketones 15 H Urine Blood Negative Urine Nitrite Negative Urine Bilirubin Negative Urine Urobilinogen 0.2 Ur Leukocyte Esterase Negative Urine RBC 0-2 Urine WBC 0-2 Ur Epithelial Cells Few Urine Crystals Negative Urine Bacteria Few Urine Casts 0-2 Hyaline Urine Mucus Moderate Ur Culture Indicated? No Urine Glucose 500 H Last Vital Signs Temp 35.7 C L 08/17/24 15:46 Pulse 69 08/17/24 15:46 Resp 16 08/17/24 15:46 BP 135/89 08/17/24 15:46 Pulse Ox 94 08/17/24 15:46 Time Spent Time spent with Patient: 40-54 minutes Time was spent: preparing to see the patient(eg.review tests), obtaining and/or reviewing separately otained hiistory, ordering medications,tests, procedures, referring, communicating with other health healthcare insurance sales agent, indepentently interpreting results, counseling the patient and care coordination
--- NOTE | 2024-08-17 17:00 | DI.RAD_ITS ---
Exam(s) XR PORTABLE CHEST AP POST LINE EXAM: XR PORTABLE CHEST AP POST LINE CLINICAL HISTORY: NG tube placement TECHNIQUE: 2D digital imaging was performed of the chest. One image was obtained. An AP view was ob tained. COMPARISON: CR XR CHEST 2V PA LATERAL from 12/24/2019 FINDINGS: MEDIASTINUM: Normal. HEART: Normal. PULMONARY VASCULATURE: Normal. LUNGS: Clear. PLEURAL SPACE: No pleural effusion or pneumothorax. BONE:Within normal limits for the patient's age. OTHER FINDINGS:There is an enteric tube. The tip is below the level of the diaphragms in the stomach . IMPRESSION: 1. No acute pulmonary findings. 2. The tip of the enteric tube is in good position in the stomach. DATA REPOSITORY: RADIATION DOSE DELIVERED:
--- NOTE | 2024-08-17 17:00 | DI.RAD_ITS ---
Exam(s) XR ABDOMEN FLAT PLATE EXAM: 2D digital imaging was performed. CLINICAL HISTORY: Post ggastrografin. COMPARISON: CR RF BARIUM SWALLOW from 01/03/2020 TECHNIQUE: Supine views of the abdomen was performed. Two images were obtained. FINDINGS: LUNG BASES: Clear. BOWEL GAS PATTERN: There is oral contrast seen predominantly in the stomach. The leading edge of the oral contrast appears to still lie within the small bowel. There are fluid-filled loops of small keysha wel present. FREE AIR: None. CALCIFICATIONS: No radiopaque calcifications. OSSEOUS STRUCTURES: Normal for age. OTHER FINDINGS: I did 80 contrast is seen in the urinary bladder from prior contrast examination. Th e tip of the enteric tube is in the stomach in good position. IMPRESSION: 1. The oral contrast lies in the small bowel and stomach at this time. Follow-up as clinically appro priate. 2. The tip of the enteric tube is in good position within the stomach. DATA REPOSITORY: RADIATION DOSE DELIVERED:
[2024-08-17] MEDS: Normal Saline Flush 10 ML SYR IVP ×2 (18:04→19:48)
--- NOTE | 2024-08-17 19:05 | W.SURGCON ---
Date of service: 08/17/24 Time of Service: 19:04 Assessment and Plan Assessment and plan (1) Small bowel obstruction: Status: Acute Assessment and plan: 74 yo man with likely SBO, although possible enteritis on the DDx. No free fluid or free air . . . no pneumatosis of bowel wall or other concerning signs to warrant surgical exploration as an emergency. Considering the ongoing cramping and reported vomiting, combined with CT findings, I think totally reasonable and agree with NGT which has been placed by the medical team prior to consult. For now, decompression and bowel rest is the mainstay of therapy for him. Surgery will follow along. Prominent varices in the abdomen are ominous - likely related to the pancreatectomy rather than cirrhosis and portal HTN. Nonetheless, GE varices are evidence of high venous pressure in those associated venous complexes which can lead to heavy hemorrhage and excessive blood loss during a surgical exploration since much of that pressure backs up into the mesenteric venous system(s). Caution must be exercised before considering exploration in this patient, not to mention the anticipated amount of scar tissue likely in his abdomen. RECOMMEND: #NGT to low CONTINUOUS suction #IVF should be Lactated Ringers #NGT losses every 12 hours should be replaced 1:1 with LR in addition to mIVF Will assess for a gastrograffin study down NGT tomorrow History of Present Illness Narrative: Asked by hospitalist to weigh in on co-management of a possible bowel obstruction vs enteritis on 74 yo man with extensive surgical history. He is known to our service from a previous open R inguinal hernia repair 2 or 3 years ago. His surgical history is a total colectomy(UC) w/ J-pouch as well as a partial pancreatectomy - presumably for CA. By report, he started having cramping and discomfort in the middle of the night and presented to the ED for evaluation. A CT scan showed dilated small bowel and stomach, likely SBO but also possible some enteritis in the pelvis. Also mentioned significant gastro-esophageal varices. Labwork mostly unremarkable with slight bump in creatinine. 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) h/o Mitral prolapse, not heard 07/2013; ?S3 Dr Jay 08/11; actually PAC I think Gastroesophageal reflux disease without esophagitis (Chronic 06/20/11) EGD with Dilatation 07/2013 [facility] (pt declines to see him again) Headache (Chronic 06/20/11) Hearing loss (Chronic 06/20/11) Lower urinary tract symptoms (LUTS) (Chronic 09/27/15) Cystoscopy 09/2015: TORIBIO 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) legs jump at night, kicks ; continues; also h/o conversion movement disorder (Thadani) Personal history of other diseases of the digestive system (Chronic 05/01/88) Ulcerative Colitis; s/p colectomy 1992; yearly check [place] [facility] [place]; pouchoscopy q 2yr Pain, joint, multiple sites (Chronic 06/20/11) Postprocedural urethral stricture, male, 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) Sleep disturbance, unspecified (Chronic 06/20/11) Status post colectomy (Chronic 05/01/88) Ulcerative Colitis; s/p colectomy 1992; yearly check -->[place] Ferm[place] [facility] [place]; pouchoscopy q 2yr Uncontrolled type 2 diabetes mellitus with hyperglycemia, with long-term current use of insulin (Chronic 08/27/16) goal A1c <7.6 Enteropathic arthritis (Chronic) 01/02/18 Dr Gutierres, [facility] Rheumatology Shoulder pain (Acute 04/15/14) Tinnitus (Acute 04/05/13) Impacted cerumen (Acute 04/05/13) History of total colectomy (Acute 07/29/14) Globus sensation (Acute 04/05/13) Dysphagia (Acute 06/15/13) Diabetes mellitus (Acute 01/30/04) Cough (Acute 04/05/13) Nocturnal leg cramps (Acute) Bronchiectasis (Acute) Emphysema lung (Acute) Medical History (Updated 08/17/24 @ 07:29 by Jaxon Feng DO) Hernia, inguinal, right Surgical History (Updated 12/05/21 @ 22:06 by Kin Gao MD) S/P inguinal herniorrhaphy using synthetic patch History of partial pancreatectomy Pt. states he 10/17/03 had part of his pancreas removed Transurethral prostatectomy (11/23/15) Pouch endoscopy (11/25/14) Dr. Matthew Fermin Colorectal surgery [facility] [place]GD - IV Sedation (11/04/16) Family History Mother , Breast Cancer at age 73. Cancer Sister Cancer breast Brother Cancer pancreatic Social History Smoking/Tobacco Use Status: Never Smoking risk assessment performed?: Yes Alcohol Intake: former Drug use: Never Substance use type: does not use and former substance user Adopted: No Caregiver/Support person: No Foster care: No Household members: spouse Housing: house Number of Children: 0 current occupation: worked at [employer] What is your relationship status?: Panel score (0-1 are the most socially isolated patients): 1 What type of physical activity do you participate in: walking Duration: 15-30 minutes/day Frequency: 3-4 times per week Seatbelt use: always Drive intox or ride w/intox cat driver: No Water heater temp set <120 deg: Yes Working smoke detector in home: Yes Fire extinguisher in home: Yes Carbon monox detector in home: Yes Do you feel safe at home: Yes Do you feel safe in your relationship?: Yes Exam Narrative Exam Narrative: Reportedly soft and not distended with mild tenderness but no peritoneal signs. Results Last Vital Signs Temp 96.3 F L 08/17/24 15:46 Pulse 69 08/17/24 15:46 Resp 16 08/17/24 15:46 BP 135/89 08/17/24 15:46 Pulse Ox 94 08/17/24 15:46 Labs 08/17/24 05:30 08/17/24 05:30 Labs: Laboratory Results - last 24 hr 08/17/24 08/17/24 05:30 05:53 WBC 12.43 H RBC 5.42 Hgb 15.3 Hct 48.3 MCV 89 MCH 28.2 MCHC 31.7 L RDW 12.7 Plt Count 262 MPV 10.4 Immature Gran % 0.2 Neutrophils % 76.8 Lymphocytes % 13.8 Monocytes % 6.8 Eosinophils % 1.7 Basophils % 0.7 Nucleated RBC % 0.0 Absolute Neutrophils 9.55 H Absolute Lymphocytes 1.72 Absolute Monocytes 0.85 H Absolute Eosinophils 0.21 Absolute Basophils 0.09 VBG Lactate 2.5 H* Sodium 143 Potassium 3.9 Chloride 104 Carbon Dioxide 28.3 Anion Gap 10.7 BUN 33 H Creatinine 1.5 H Est GFR (CKD-EPI 2020) 48.55 Glucose 132 H Calcium 9.6 Total Bilirubin 0.6 AST 31 ALT 27 Alkaline Phosphatase 120 H Total Protein 7.5 Albumin 4.2 Lipase 15 Urine Color Yellow Urine Clarity Clear Urine pH 5.5 Ur Specific [place] 1.020 Urine Protein 30 H Urine Ketones 15 H Urine Blood Negative Urine Nitrite Negative Urine Bilirubin Negative Urine Urobilinogen 0.2 Ur Leukocyte Esterase Negative Urine RBC 0-2 Urine WBC 0-2 Ur Epithelial Cells Few Urine Crystals Negative Urine Bacteria Few Urine Casts 0-2 Hyaline Urine Mucus Moderate Ur Culture Indicated? No Urine Glucose 500 H
[2024-08-17] MEDS: Lactated Ringers 1,000 ML 145 ML IV (19:20)
[2024-08-18] MEDS: MORPHine 2 MG/ML SYR IVP ×2 (00:34→06:15)
[2024-08-18] MEDS: Lactated Ringers 1,000 ML 145 ML IV (02:22)
[2024-08-18 05:54] VITALS: BP 134/82; PULSE 85; RESP 19; TEMP 36.8; O2SAT 93
[2024-08-18] MEDS: Ondansetron 4 MG/2 ML VIAL IVP (06:11)
[2024-08-18] MEDS: Normal Saline Flush 10 ML SYR IVP ×2 (06:16→19:54)
[2024-08-18 07:01] LABS: Abs Immature Grans 0.01 10^3/uL (0.0-0.06); Absolute Basophil Count 0.06 10^3/uL (0.0-0.2); Absolute Eosinophil Count 0.04 10^3/uL (0.0-0.7); Absolute Lymphocyte Count 0.84 10^3/uL (1.2-3.4); Absolute Neutrophil Count 9.55 10^3/uL (1.2-6.7); Basophils % 0.5 %; Eosinophils % 0.3 %; HCT 49.4 % (40.0-50.0); HGB 15.8 g/dL (13.5-17.5); Immature Grans % 0.1 %; MCH 28.4 pg (27.0-33.0); MCV 89 fL (80-95); MPV 10.7 fL (8.0-11.0); Monocytes % 12.4 %; Neutrophils % 79.7 %; Platelet Count 247 10^3/uL (130-400); RBC 5.57 10^6/uL (4.36-5.78); RDW 12.9 % (11.8-14.1); RDW-SD 42.3 fL; WBC 11.98 10^3/uL (4.4-10.8)
[2024-08-18 07:09] LABS: Absolute Monocyte Count 1.49 10^3/uL (0.1-0.8)
[2024-08-18 07:26] LABS: ALT 20 U/L (16-63); AST 24 U/L (15-37); Albumin 3.7 g/dL (3.4-5.0); Alkaline Phosphatase 115 U/L (46-116); BUN 36 mg/dL (7-18); Bilirubin, Total 1.5 mg/dL (0.2-1.0); CREATININE 1.4 mg/dL (0.70-1.30); Calcium 9.3 mg/dL (8.5-10.1); Chloride 103 mmol/L (98-107); Estimated GFR 52.74 (mL/min/1.73m2); Glucose 173 mg/dL (74-106); Potassium 3.8 mmol/L (3.5-5.1); Sodium 142 mmol/L (136-145); Total Protein 7.1 g/dL (6.4-8.2)
--- NOTE | 2024-08-18 08:21 | DI.RAD_ITS ---
Exam(s) XR ABDOMEN FLAT PLATE EXAM: 2D digital imaging was performed. CLINICAL HISTORY: bowel obstruction. COMPARISON: CR XR ABDOMEN FLAT PLATE from 08/17/2024 TECHNIQUE: Supine views of the abdomen was performed. Two images were obtained. FINDINGS: LUNG BASES: Clear. BOWEL GAS PATTERN: Nondistended. The contrast has advanced into the colon. There is no evidence of o bstruction. FREE AIR: None. CALCIFICATIONS: No radiopaque calcifications. OSSEOUS STRUCTURES: Normal for age. There is a mild right convex lumbar scoliosis. OTHER FINDINGS: The tip of the enteric tube is in good position in the stomach. IMPRESSION: No evidence of bowel obstruction. DATA REPOSITORY: RADIATION DOSE DELIVERED:
--- NOTE | 2024-08-18 08:24 | PDOC.CMIN ---
Date of service: 08/18/24 Time of Service: 08:24 Care Management Initial Assmt Advance Directives Advance Directives: Do you have an Advance Directive: Y 11/13/21 10:39 AD On File at [facility]: Y 11/13/21 10:39 Date Asked 12/03/18 08/17/24 11:58 AD Date Reviewed 08/17/24 08/17/24 05:50 COLST On File at [facility] COLST Date Scanned Code Status Resuscitation Status Full Code Care Team Visit Care Team Role Provider Type Logan Armendariz MD MD [facility] STAFF PHYSICIAN Sanya Braden DO Primary Care Provider OSTEOPATHIC DOCTOR Susan Russell Other Providers STENOTYPE OPERATOR Jackie Harrington Other Providers STENOTYPE OPERATOR Nataliya Sosa Other Providers STENOTYPE OPERATOR Mana Augustin RN Other Providers STENOTYPE OPERATOR Agnes Talbot Other Providers STENOTYPE OPERATOR Selina Woods MD Emergency Provider [facility] STAFF PHYSICIAN Edinson Talbot MD Admit Provider [facility] STAFF PHYSICIAN Attending Provider Social Determinants of Health Screening Social Determinants of health last assessed in clinic: 08/17/24 Will the Patient Participate in the Screening?: Yes Do you worry about having a steady place to live?: no Problems where you live: no known problems In the past 12 months, have you had to go without electric, gas, oil or water in your home?: no Has lack of transportation kept you from medical appointments or from doing things needed for daily living?: no Has anyone in your life made you feel unsafe or unsupported?: no How hard is it for you to pay for the very basics like food, housing, medical care, and heating? Would you say it is:: Not hard at all Do you want help finding or keeping work or a job?: I do not need or want help If for any reason you need help with day-to-day activities such as bathing, preparing meals, shopping, managing finances, etc., do you get the help you need?: I don?t need any help How often do you feel lonely or isolated from those around you?: Never Do you speak a language other than Guamanian at home?: Yes Does the patient want assistance with any of the above?: No Health Related Social Needs Health related social needs: education (Z55.6) 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) h/o Mitral prolapse, not heard 07/2013; ?S3 Dr Jay 08/11; actually PAC I think Gastroesophageal reflux disease without esophagitis (Chronic 06/20/11) EGD with Dilatation 07/2013 [facility] (pt declines to see him again) Headache (Chronic 06/20/11) Hearing loss (Chronic 06/20/11) Lower urinary tract symptoms (LUTS) (Chronic 09/27/15) Cystoscopy 09/2015: TORIBIO 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) legs jump at night, kicks ; continues; also h/o conversion movement disorder (Thadani) Personal history of other diseases of the digestive system (Chronic 05/01/88) Ulcerative Colitis; s/p colectomy 1992; yearly check -->[place] Ferm[place] [facility] [place]; pouchoscopy q 2yr Pain, joint, multiple sites (Chronic 06/20/11) Postprocedural urethral stricture, male, 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) Sleep disturbance, unspecified (Chronic 06/20/11) Status post colectomy (Chronic 05/01/88) Ulcerative Colitis; s/p colectomy 1992; yearly check -->[place] Ferm[place] [facility] [place]; pouchoscopy q 2yr Uncontrolled type 2 diabetes mellitus with hyperglycemia, with long-term current use of insulin (Chronic 08/27/16) goal A1c <7.6 Enteropathic arthritis (Chronic) 01/02/18 Dr Gutierres, [facility] Rheumatology Shoulder pain (Acute 04/15/14) Tinnitus (Acute 04/05/13) Impacted cerumen (Acute 04/05/13) History of total colectomy (Acute 07/29/14) Globus sensation (Acute 04/05/13) Dysphagia (Acute 06/15/13) Diabetes mellitus (Acute 01/30/04) Cough (Acute 04/05/13) Nocturnal leg cramps (Acute) Bronchiectasis (Acute) Emphysema lung (Acute) Medical History (Updated 08/17/24 @ 07:29 by Jaxon Feng DO) Hernia, inguinal, right Surgical History (Updated 12/05/21 @ 22:06 by Kin Gao MD) S/P inguinal herniorrhaphy using synthetic patch History of partial pancreatectomy Pt. states he 10/17/03 had part of his pancreas removed Transurethral prostatectomy (11/23/15) Pouch endoscopy (11/25/14) Dr. Matthew Fermin Colorectal [place] [facility] [place]GD - IV Sedation (11/04/16) Family History Mother , Breast Cancer at age 73. Cancer Sister Cancer breast Brother Cancer pancreatic Social History Smoking/Tobacco Use Status: Never Smoking risk assessment performed?: Yes Alcohol Intake: former Drug use: Never Substance use type: does not use and former substance user Adopted: No Caregiver/Support person: No Foster care: No Household members: spouse Housing: house Number of Children: 0 current occupation: worked at [employer] What is your relationship status?: Panel score (0-1 are the most socially isolated patients): 1 What type of physical activity do you participate in: walking Duration: 15-30 minutes/day Frequency: 3-4 times per week Seatbelt use: always Drive intox or ride w/intox regional 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
--- NOTE | 2024-08-18 08:45 | PDOC.CMIN ---
Date of service: 08/18/24 Time of Service: 08:45 Care Management Initial Assmt Initial Assessment Reason for Hospitalization: small bowel obstruction Functional Status/Living Situation Patient Presentation: Calixto presented to the ED yesterday morning with c/o abdominal pain and nausea. He stated that he felt very crampy and that it felt identical to when he had an SBO in the past. Calixto does have a past medical history of ulcerative colitis, colon cancer, colectomy. Calixto was sitting up in the bedside chair, washing his feet, when CM met with him. He was very pleasant. He has an NGT which is hooked to suction. He reported that he is feeling so much better, even than just earlier this morning, and is hoping to take a walk later in the day. Per surgery note, his NGT will be clamped later today, and he will trial a clear liquid diet in the hopes of being able to advance without vomiting or pain. Calixto lives in [place] for most of the year. He and his are residing at a [facility]. He does have a provider here in [facility] and also in [facility]. He and Divya have no children, but do have some nieces and nephews in this area. 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) Instrumental Activities of Daily Living (ADLs): Independent Medications Medication Management: No Issues/Barriers identified Advance Directives Advance Directives: Do you have an Advance Directive: Y 11/13/21 10:39 AD On File at [facility]: Y 11/13/21 10:39 Date Asked 12/03/18 08/17/24 11:58 AD Date Reviewed 08/17/24 08/17/24 05:50 COLST On File at [facility] COLST Date Scanned Code Status Resuscitation Status Full Code Insurance Coverage/Financial Issues [place]: [place] - [id number] Care Team Visit Care Team Role Provider Type Logan Armendariz MD MD [facility] STAFF PHYSICIAN Sanya Braden DO Primary Care Provider OSTEOPATHIC DOCTOR Susan Russell Other Providers NEUROPHYSIOLOGY TECH Jackie Harrington Other Providers NEUROPHYSIOLOGY TECH Nataliya Sosa Other Providers NEUROPHYSIOLOGY TECH Mana Augustin RN Other Providers NEUROPHYSIOLOGY TECH Agnes Talbot Other Providers NEUROPHYSIOLOGY TECH Selina Woods MD Emergency Provider [facility] STAFF PHYSICIAN Edinson Talbot MD Admit Provider [facility] STAFF PHYSICIAN Attending Provider Discharge Potential Discharge Needs: PCP F/U Appt and Surgical F/U Appt Anticipated Barriers to Discharge: None Identified Patient/Family Education Needs: Review discharge instructions, discuss Ask Me Three Transportation: Private vehicle Plan: Calixto will discharge home with no new services once he is medically stable. He will f/u with his PCP and possibly the surgeon and continue per his plan of care. CM will continue to follow. Social Determinants of Health Screening Social Determinants of health last assessed in clinic: 08/18/24 Will the Patient Participate in the Screening?: Yes Do you worry about having a steady place to live?: no Problems where you live: no known problems In the past 12 months, have you had to go without electric, gas, oil or water in your home?: no 1. Within the past 12 months, we worried whether our food would run out before we got money to buy more.: Never true 2. Within the past 12 months, the food we bought just didn't last and we didn't have money to get more.: Never true Has lack of transportation kept you from medical appointments or from doing things needed for daily living?: no Has anyone in your life made you feel unsafe or unsupported?: no How hard is it for you to pay for the very basics like food, housing, medical care, and heating? Would you say it is:: Not hard at all Do you want help finding or keeping work or a job?: I do not need or want help If for any reason you need help with day-to-day activities such as bathing, preparing meals, shopping, managing finances, etc., do you get the help you need?: I don?t need any help How often do you feel lonely or isolated from those around you?: Never Do you speak a language other than [place] Islander at home?: Yes Does the patient want assistance with any of the above?: No Health Related Social Needs Health related social needs: education (Z55.6) 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) h/o Mitral prolapse, not heard 07/2013; ?S3 Dr Jay 08/11; actually PAC I think Gastroesophageal reflux disease without esophagitis (Chronic 06/20/11) EGD with Dilatation 07/2013 [facility] (pt declines to see him again) Headache (Chronic 06/20/11) Hearing loss (Chronic 06/20/11) Lower urinary tract symptoms (LUTS) (Chronic 09/27/15) Cystoscopy 09/2015: TORIBIO 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) legs jump at night, kicks ; continues; also h/o conversion movement disorder (Thadani) Personal history of other diseases of the digestive system (Chronic 05/01/88) Ulcerative Colitis; s/p colectomy 1992; yearly check -->Dr Fermin [facility] [place]; pouchoscopy q 2yr Pain, joint, multiple sites (Chronic 06/20/11) Postprocedural urethral stricture, male, 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) Sleep disturbance, unspecified (Chronic 06/20/11) Status post colectomy (Chronic 05/01/88) Ulcerative Colitis; s/p colectomy 1992; yearly check -->Dr Fermin [facility] [place] 2014; pouchoscopy q 2yr Uncontrolled type 2 diabetes mellitus with hyperglycemia, with long-term current use of insulin (Chronic 08/27/16) goal A1c <7.6 Enteropathic arthritis (Chronic) 01/02/18 Dr Gutierres, [facility] Rheumatology Shoulder pain (Acute 04/15/14) Tinnitus (Acute 04/05/13) Impacted cerumen (Acute 04/05/13) History of total colectomy (Acute 07/29/14) Globus sensation (Acute 04/05/13) Dysphagia (Acute 06/15/13) Diabetes mellitus (Acute 01/30/04) Cough (Acute 04/05/13) Nocturnal leg cramps (Acute) Bronchiectasis (Acute) Emphysema lung (Acute) Medical History (Updated 08/17/24 @ 07:29 by Jaxon Feng DO) Hernia, inguinal, right Surgical History (Updated 12/05/21 @ 22:06 by Kin Gao MD) S/P inguinal herniorrhaphy using synthetic patch History of partial pancreatectomy Pt. states he 10/17/03 had part of his pancreas removed Transurethral prostatectomy (11/23/15) Pouch endoscopy (11/25/14) Dr. Matthew Fermin Colorectal surgery [facility] [place] EGD - IV Sedation (11/04/16) Family History Mother , Breast Cancer at age 73. Cancer Sister Cancer breast Brother Cancer pancreatic Social History Smoking/Tobacco Use Status: Never Smoking risk assessment performed?: Yes Alcohol Intake: former Drug use: Never Substance use type: does not use and former substance user Adopted: No Caregiver/Support person: No Foster care: No Household members: spouse Housing: house Number of Children: 0 current occupation: worked at [employer] What is your relationship status?: Panel score (0-1 are the most socially isolated patients): 1 What type of physical activity do you participate in: walking Duration: 15-30 minutes/day Frequency: 3-4 times per week Seatbelt use: always Drive intox or ride w/intox professional driver: No Water heater temp set <120 deg: Yes Working smoke detector in home: Yes Fire extinguisher in home: Yes Carbon monox detector in home: Yes Do you feel safe at home: Yes Do you feel safe in your relationship?: Yes
[2024-08-18 11:35] VITALS: BP 136/70; PULSE 79; RESP 16; TEMP 35.8; O2SAT 95
--- NOTE | 2024-08-18 11:43 | W.PM.PROGNOT ---
Date of Service Date of service: 08/18/24 Time of Service: 11:59 Assessment and Plan Assessment and plan (1) Small bowel obstruction: Status: Acute Assessment and plan: I was able to review Calixto's x-ray from this morning, and it appears the contrast has made it all the way down to the J-pouch. His exam is very reassuring. I will clamp his nasogastric tube this afternoon, and reassess in the evening. Hopefully, we can get the tube out, and slowly advance his diet. Subjective Subjective Interval history since last seen: Calixto did have an episode of nausea and vomiting this morning, but that quickly resolved, and since then he has been feeling much better. He had several liquid bowel movements. His abdominal distention has resolved, and he actually has some increased appetite this morning. Exam GI Other: His abdomen is soft and nondistended. He is not tender. There is nothing in the nasogastric tube currently Objective Last Vital Signs Temp 96.4 F L 08/18/24 11:35 Pulse 79 08/18/24 11:35 Resp 16 08/18/24 11:35 BP 136/70 08/18/24 11:35 Pulse Ox 95 08/18/24 11:35 Laboratory Results - last 24 hr 08/18/24 06:29 WBC 11.98 H RBC 5.57 Hgb 15.8 Hct 49.4 MCV 89 MCH 28.4 MCHC 32.0 RDW 12.9 Plt Count 247 MPV 10.7 Immature Gran % 0.1 Neutrophils % 79.7 Lymphocytes % 7.0 Monocytes % 12.4 Eosinophils % 0.3 Basophils % 0.5 Nucleated RBC % 0.0 Absolute Neutrophils 9.55 H Absolute Lymphocytes 0.84 L Absolute Monocytes 1.49 H Absolute Eosinophils 0.04 Absolute Basophils 0.06 Sodium 142 Potassium 3.8 Chloride 103 Carbon Dioxide 28.0 Anion Gap 11.0 BUN 36 H Creatinine 1.4 H Est GFR (CKD-EPI 2020) 52.74 Glucose 173 H Calcium 9.3 Total Bilirubin 1.5 H AST 24 ALT 20 Alkaline Phosphatase 115 Total Protein 7.1 Albumin 3.7 Time Spent with Patient Time Spent with Patient: 25-34 minutes Time was spent: preparing to see the patient(eg.review tests), referring, communicating with other health memory care director and indepentently interpreting results
--- NOTE | 2024-08-18 12:28 | PGE_ITS ---
Date of Service Date of service: 08/18/24 Time of Service: 12:28 Assessment and Plan Assessment and plan (1) Small bowel obstruction: Status: Acute Assessment and plan: -patient presented with abdomen discomfort and constipation and was found to have partial SBO -[facility], [facility] surgeons agreed, especially with additional findings of abdominal varicies -NG tube placed, good suction overnight as well as episodes of emesis early AM 08/18 -discussed with General Surgeon Dr. 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 -SSI, CCD (3) Kidney stone: Status: Resolved Assessment and plan: Patient has a history of multiple kidney stones but currently not complaining of any flank pain. Subjective Subjective Interval history since last seen: Patient states that he is feeling much better after NG suction over night as well as after a few episodes of emesis. Exam Narrative Exam Narrative: well appearing older gentleman sitting up in the chair in no acute distress, AO x4, heart RRR, lungs CTAB, abdomen soft, non-tender, non-distended, positive bowel sounds Objective Last Vital Signs Temp 96.4 F L 08/18/24 11:35 Pulse 79 08/18/24 11:35 Resp 16 08/18/24 11:35 BP 136/70 08/18/24 11:35 Pulse Ox 95 08/18/24 11:35 Laboratory Results - last 24 hr 08/18/24 06:29 WBC 11.98 H RBC 5.57 Hgb 15.8 Hct 49.4 MCV 89 MCH 28.4 MCHC 32.0 RDW 12.9 Plt Count 247 MPV 10.7 Immature Gran % 0.1 Neutrophils % 79.7 Lymphocytes % 7.0 Monocytes % 12.4 Eosinophils % 0.3 Basophils % 0.5 Nucleated RBC % 0.0 Absolute Neutrophils 9.55 H Absolute Lymphocytes 0.84 L Absolute Monocytes 1.49 H Absolute Eosinophils 0.04 Absolute Basophils 0.06 Sodium 142 Potassium 3.8 Chloride 103 Carbon Dioxide 28.0 Anion Gap 11.0 BUN 36 H Creatinine 1.4 H Est GFR (CKD-EPI 2020) 52.74 Glucose 173 H Calcium 9.3 Total Bilirubin 1.5 H AST 24 ALT 20 Alkaline Phosphatase 115 Total Protein 7.1 Albumin 3.7 Time Spent with Patient Time Spent with Patient: >50 minutes Time was spent: preparing to see the patient(eg.review tests), obtaining and/or reviewing separately otained hiistory, ordering medications,tests, procedures, referring, communicating with other health care director rn, indepentently interpreting results, counseling the patient and care coordination
--- NOTE | 2024-08-18 13:05 | CHAPLAIN ---
Calixto is here with a small bowel obstruction. He was resting in bed when I visited. His was with him. Calixto was pleasant and easily engaged in conversation. He said he's feeling better, eating only ice chips and hopes to move on to broth and Jell-O this evening. Calixto remarked about how many different people have been in and out of his room and he's trying to keep them all straight. I explained my role and offered support.
[2024-08-18 17:55] VITALS: BP 127/75; PULSE 83; RESP 14; TEMP 35.5; O2SAT 98
[2024-08-18 19:10] VITALS: BP 116/67; PULSE 78; RESP 18; TEMP 37; O2SAT 93
[2024-08-18 23:07] VITALS: BP 116/66; PULSE 75; TEMP 37.4; O2SAT 18
[2024-08-19 03:16] VITALS: BP 111/69; PULSE 71; RESP 19; TEMP 36.4; O2SAT 94
[2024-08-19 07:26] VITALS: BP 111/73; PULSE 76; RESP 16; TEMP 36; O2SAT 96
--- NOTE | 2024-08-19 08:54 | PDOC.CMDIS ---
Date of service: 08/19/24 Time of Service: 08:54 LACE Index Scoring Tool Questions: Length of Stay (in days): 2 Was the patient admitted via the E.D.?: Yes Comorbidities: Diabetes w/o Complication E.D. Visits: 1 Answers: Total Score: 7 Risk of Readmission: Low Risk Care Management Discharge Plan Reason for Hospitalization: SBO Discharge Plan: Calixto will discharge today with no new services. He will f/u with his PCP, continue per his plan of care, and transport home with his . Patient/Family Education Needs: Review of discharge instructions, dietary recommendations and limitations, discuss Ask me 3. SDOH Health Related Social Needs: Health related social needs education (Z55.6)
[2024-08-19] MEDS: Normal Saline Flush 10 ML SYR IVP (08:57)
[2024-08-19] MEDS: Beta-Carotene(A) w/C,E, & Minerals TAB 1 TAB PO (09:03)
--- NOTE | 2024-08-19 09:27 | W.PM.DS.N ---
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 Patient NG tube in place and combination with suction and a few episodes of emesis had significant improvement of his symptoms. Patient tolerated clears well tube was clamped and tube was ultimately removed. On morning 08/19/2024 patient had regular diet for breakfast and tolerated it well without any abdominal pain. Additionally, patient had multiple bowel movements throughout hospitalization. Given that patient's obstruction appeared to have resolved it was determined he was stable for discharge home. Home Meds and New Rx's Prescriptions: Continued omeprazole 40 mg capsule,delayed release(DR/EC) 20 mg PO DAILY celecoxib [Celebrex] 200 mg capsule 200 mg PO DAILY sulfamethoxazole-trimethoprim [Bactrim DS] 800-160 mg tablet 1 tab PO BID Qty: 14 0RF levalbuterol HCl 0.63 mg/3 mL solution for nebulization 0.21 mg inhalation Q6H PRN (Reason: shortness of breath or wheezing) Qty: 180 12RF (DME) pen needle, diabetic [BD Ultra-Fine Orig Pen Needle] 29 gauge x 1/2 needle 1 ea Miscellaneous AC & HS Qty: 360 3RF Rx Instructions: 5mm/31G mini single use. For diabetes control (DME) lancets [OneTouch SureSoft Lancing Dev] misc 1 ea Miscellaneous QID Qty: 480 3RF Rx Instructions: E11.9 to maintain A1C less than 7.0 , test TID diphenoxylate-atropine [Lomotil] 2.5-0.025 mg tablet 1 tab PO TID insulin aspart U-100 [Novolog FlexPen U-100 Insulin] 100 unit/mL (3 mL) insulin pen 15 - 30 unit subcut TID Rx Instructions: Sliding scale Based on BGL + amount of carbs consumed calcium carb,lactat-vitamin D3 200 mg calcium -250 unit tablet 2 tab PO DAILY Creon 24,000-76,000 -120,000 unit capsule,delayed release(DR/EC) 1 cap PO BID Rx Instructions: administer with meals and/or snacks atorvastatin 10 mg tablet 20 mg PO DAILY Patient Comments: pt states he takes i tab every other day Levemir FlexTouch U100 Insulin 100 unit/mL (3 mL) insulin pen 30 unit subcut QHS Patient Comments: Pt is up to 32 units. insulin glargine 100 unit/mL (3 mL) insulin pen 32 unit subcut QPM loperamide 2 mg capsule 2 mg PO DAILY diclofenac sodium 3 % gel 1 applic topical BID multivitamin [Daily Multi-Vitamin] 1 EACH tablet 1 ea PO .QOD glucosamine sulfate 2KCl 1,000 MG tablet 1,000 mg PO BID (DME) blood glucose control, normal [Fora Normal Control] 1 EACH solution 1 ea Miscellaneous PRN Qty: 1 Rx Instructions: to use each time a new Lot # of test strips are opened. Dx: E11.69 (DME) OneTouch Ultra Test strip 1 ea Miscellaneous QID Qty: 270 4RF Rx Instructions: to test blood sugar to keep HGB AIC less than 7, test TID, E11.65 omega-3 fatty acids-fish oil 300-1,000 mg capsule 1 cap PO QPM psyllium husk [Metamucil] 0.52 gram capsule 0.52 g PO BID Rx Instructions: as directed, for constipation following bowel surgery acetaminophen [Arthritis Pain Relief (acetam)] 650 MG tablet extended release 1,300 mg PO BID empagliflozin 25 mg tablet 12.5 mg PO DAILY magnesium gluconate 27 mg magnesium (500 mg) tablet 27 mg PO DAILY baclofen 5 mg granules in packet 5 mg PO ONCE lidocaine 5 % adhesive patch,medicated 1 patch topical DAILY PRN Rx Instructions: leave on most painful area for up to 12 hrs Lutein Plus With Zeaxanthin 1,500 mcg-60 mg -20 mg-15 mg tablet 1 tab PO DAILY ferrous sulfate 325 mg (65 mg iron) Tablet 325 mg PO Q OTHER DAY Discharge Instructions Activity:: Activity as Tolerated Equipment/Supplies:: No Equipment Needed Diet:: As Tolerated Discharge Orders Discharge Orders: Discharge Order (Routine); Ordered 08/19/24 Ordered By: Logan Armendariz DS: Summary Time Spent with Patient providing and/or coordinating discharge services: Greater than 30 minutes Status at Discharge Functional status at discharge: independent ambulation Overall status at discharge: patient is back to baseline Mental Status: mental status grossly normal Speech and Movement: speech and movement normal Mood: congruent mood Affect: normal affect Quality:SDOH Health Related Social Needs: Health related social needs education (Z55.6) Exam Narrative Exam Narrative: well appearing older gentleman sitting up in the chair in no acute distress, AOx4, heart RRR, lungs CTAB, abdomen soft, non-tender, non-distended, positive bowel sounds Psych Mental Status: mental status grossly normal Speech and Movement: speech and movement normal Mood: congruent mood Affect: normal affect DS: Data Vitals/I&O Vitals and I&O: Vital Signs Temperature 96.8 F L 08/19/24 07:26 Temperature Source Temporal Artery Scan 08/19/24 07:26 Pulse 76 08/19/24 07:26 Pulse Rhythm Regular 08/17/24 12:53 Pulse 67 08/17/24 11:40 Respiratory Rate 16 08/19/24 07:26 Respiratory Effort Normal 08/17/24 12:53 Respiratory Depth Normal 08/17/24 12:53 Respiratory Pattern Normal 08/17/24 12:53 Blood Pressure 111/73 08/19/24 07:26 Blood Pressure Mean 85 08/19/24 07:26 Pulse Oximetry 96 08/19/24 07:26 Oxygen Delivery Method Room Air 08/19/24 07:26 Oxygen Flow Rate 0 08/19/24 07:26 Pain Level 1 08/19/24 07:26 Intake & Output 08/18/24 08/19/24 08/19/24 17:59 05:59 17:59 Intake Total 1999.000 / 1999.000 419.001 / 2419.001 Output Total 1050 / 1050 Balance 950.000 / 950.000 419.001 / 1369.001 Weight 149 lb 142 lb 13.753 oz Intake: IV 1999.000 / 1999.000 419.001 / 2419.001 Output: Gastric Drainage 150 / 150 Right Nare 150 / 150 Emesis 900 / 900 Other: Urine Color Yellow Yellow Urine Appearance Clear Clear Urine Odor None Stool Size Small Stool Characteristics Soft Emesis Description Coffee Grounds 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) h/o Mitral prolapse, not heard 07/2013; ?S3 Dr Jay 08/11; actually PAC I think Gastroesophageal reflux disease without esophagitis (Chronic 06/20/11) EGD with Dilatation 07/2013 [facility] (pt declines to see him again) Headache (Chronic 06/20/11) Hearing loss (Chronic 06/20/11) Lower urinary tract symptoms (LUTS) (Chronic 09/27/15) Cystoscopy 09/2015: TORIBIO 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 for 2014; pouchoscopy q 2yr Uncontrolled type 2 diabetes mellitus with hyperglycemia, with long-term current use of insulin (Chronic 08/27/16) goal A1c <7.6 Enteropathic arthritis (Chronic) 01/02/18 Dr Gutierres, [facility] Rheumatology Shoulder pain (Acute 04/15/14) Tinnitus (Acute 04/05/13) Impacted cerumen (Acute 04/05/13) History of total colectomy (Acute 07/29/14) Globus sensation (Acute 04/05/13) Dysphagia (Acute 06/15/13) Diabetes mellitus (Acute 01/30/04) Cough (Acute 04/05/13) Nocturnal leg cramps (Acute) Bronchiectasis (Acute) Emphysema lung (Acute) Medical History (Updated 08/17/24 @ 07:29 by Jaxon Feng DO) Hernia, inguinal, right Surgical History (Updated 12/05/21 @ 22:06 by Kin Gao MD) S/P inguinal herniorrhaphy using synthetic patch History of partial pancreatectomy Pt. states he 10/17/03 had part of his pancreas removed Transurethral prostatectomy (11/23/15) Pouch endoscopy (11/25/14) Dr. Matthew Fermin Colorectal surgery [facility] EGD - IV Sedation (11/04/16) Family History Mother , Breast Cancer at age 73. Cancer Sister Cancer breast Brother Cancer pancreatic Social History Smoking/Tobacco Use Status: Never Smoking risk assessment performed?: Yes Alcohol Intake: former Drug use: Never Substance use type: does not use and former substance user Adopted: No Caregiver/Support person: No Foster care: No Household members: spouse Housing: house Number of Children: 0 current occupation: worked at [employer] What is your relationship status?: Panel score (0-1 are the most socially isolated patients): 1 What type of physical activity do you participate in: walking Duration: 15-30 minutes/day Frequency: 3-4 times per week Seatbelt use: always Drive intox or ride w/intox 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
== END 2024-08-19 11:22 | disposition home or self-care (01) | DRG 389 ==
LOC: ER 11:29 → MS 11:49
PROVIDERS: Student in an Organized Health Care Education/Training Program; Admitting Provider Hospitalist; Emergency Provider Emergency Medicine; PCP Family Medicine; Responsible Provider Family Medicine; Visit Provider Hospitalist
DX: K56.609 Unspecified intestinal obstruction, unspecified as to partial versus complete obstruction (principal); E89.1 Postprocedural hypoinsulinemia; E13.65 Other specified diabetes mellitus with hyperglycemia; N20.0 Calculus of kidney; K21.9 Gastro-esophageal reflux disease without esophagitis; R51.9 Headache, unspecified; Z90.49 Acquired absence of other specified parts of digestive tract; M13.89 Other specified arthritis, multiple sites; J47.9 Bronchiectasis, uncomplicated; Z90.411 Acquired partial absence of pancreas; G25.89 Other specified extrapyramidal and movement disorders; Z79.4 Long term (current) use of insulin
CPT/HCPCS: 00123; 36415; 36416; 71045; 80053; 82962; 83690; 96361; 96374; 96375; 99285; 74018; 74177; 81003; 81015; 83605; 85025; 99222; 99233; 99239; J0131; J1815; J2270; J2405; J3490

== ENCOUNTER → 2024-08-24 12:46 | Outpatient (BNVA) | payer MEDICARE, OTHER, SELFPAY | PROVIDERS: Referring Provider Family Medicine; Visit Provider Physician Assistant Surgical | DX: J47.9 Bronchiectasis, uncomplicated (principal); J43.2 Centrilobular emphysema | CPT/HCPCS: 99214 ==

== ENCOUNTER → 2024-12-20 13:08 | Outpatient (BNVA) | payer MEDICARE, OTHER, SELFPAY | PROVIDERS: Visit Provider Physician Assistant Surgical | DX: J47.9 Bronchiectasis, uncomplicated (principal); J43.2 Centrilobular emphysema | CPT/HCPCS: 99214 ==